=== PATIENT | male | born 1940 | race Caucasian/White ===

== ENCOUNTER 2023-01-06 10:21 | Outpatient (REF) | payer MEDICARE, SELFPAY ==
[2023-01-06 11:46] LABS: MANUAL DIFF FLAG NO
[2023-01-06 11:59] LABS: Basophils Percent Auto 0.2 % (0-2); Eosinophils Absolute Auto 0.1 X10*3/uL (0.0-0.4); Hematocrit 35.2 % (42.0-52.0); Hemoglobin 12.4 g/dl (14.0-18.0); Imm Gran Abs Auto 0.01 X10*3/uL (0.00-0.03); Imm Gran Pct Auto 0.2 % (0.0-0.4); Lymphocytes Percent Auto 21.9 % (20-40); Mean Corpuscular HGB Conc 35.2 g/dl (31.0-36.0); Mean Corpuscular Hemoglobin 34.1 pg (27.0-33.0); Mean Corpuscular Volume 96.7 fL (80.0-98.0); Mean Platelet Volume 9.6 fL (9.4-12.4); Monocytes Absolute Auto 0.4 X10*3/uL (0.1-1.2); Monocytes Percent Auto 8.8 % (2-11); Neutrophils Percent Auto 66.9 % (45-73); Platelet Count 219 X10*3/uL (160-400); Red Blood Count 3.64 X10*6/uL (4.60-5.80); White Blood Count 4.5 X10*3/uL (4.8-10.8)
[2023-01-06 12:08] LABS: Creatinine Urine 126.36 mg/dL
[2023-01-06 12:12] LABS: Microalbum/Creatinine Ratio Ur 56.1 ug/mg cr
[2023-01-06 12:51] LABS: Estimated Average Glucose 97 mg/dL
[2023-01-06 14:44] LABS: Alanine Aminotransferase 19 U/L (0-40); Albumin Level 4.3 g/dL (3.5-5.0); Alkaline Phosphatase 98 U/L (39-117); Anion Gap 13 (12-20); Aspartate Amino Transferase 24 U/L (5-37); Bilirubin Total 0.9 mg/dL (0.0-1.0); Blood Urea Nitrogen 21 mg/dL (9-16); Calcium 9.7 mg/dL (8.4-10.2); Carbon Dioxide 24 mmol/L (22-29); Chloride 108 mmol/L (96-108); Cholesterol 218 mg/dL; Estimated Glomerular Filt Rate 59; Glucose Fasting 110 mg/dL (60-99); HDL Cholesterol 44 mg/dL; Iron 87 mcg/dL (45-160); LDL Cholesterol Calculated 143 mg/dl; Percent Iron Saturation 36 % (15-50); Potassium 4.9 mmol/L (3.3-5.1); Sodium 140 mmol/L (135-145); Total Iron Binding Capacity 242 mcg/dL (228-428); Triglycerides 157 mg/dL; Unsaturated Iron Binding 155 ug/dL
[2023-01-06 15:10] LABS: Folate 11.7 ng/mL (> or = 4.0); Vitamin D 25-OH Total 15.8 ng/mL (>30)
[2023-01-07 06:40] LABS: Vitamin B12 427 pg/mL (200-900)
== END 2023-01-06 10:22 | disposition home or self-care (01) ==
LOC: HO.HMGCLDS 10:21
PROVIDERS: PCP Internal Medicine; Visit Provider Internal Medicine
DX: I10 Essential (primary) hypertension (principal); C61 Malignant neoplasm of prostate; E53.0 Riboflavin deficiency; E55.9 Vitamin D deficiency, unspecified; G62.9 Polyneuropathy, unspecified
CPT/HCPCS: 36415; 80053; 80061; 82043; 82306; 82607; 82746; 83036; 83540; 85025

== ENCOUNTER 2023-03-25 10:40 | Outpatient (REF) | payer MEDICARE, SELFPAY ==
[2023-03-25 13:54] LABS: MANUAL DIFF FLAG NO
[2023-03-25 13:58] LABS: Basophils Percent Auto 0.4 % (0-2); Eosinophils Absolute Auto 0.1 X10*3/uL (0.0-0.4); Eosinophils Percent Auto 1.1 % (0-4); Hematocrit 37.9 % (42.0-52.0); Hemoglobin 13.2 g/dl (14.0-18.0); Imm Gran Abs Auto 0.02 X10*3/uL (0.00-0.03); Imm Gran Pct Auto 0.4 % (0.0-0.4); Lymphocytes Absolute Auto 1.4 X10*3/uL (1.2-4.9); Mean Corpuscular HGB Conc 34.8 g/dl (31.0-36.0); Mean Corpuscular Hemoglobin 33.9 pg (27.0-33.0); Mean Corpuscular Volume 97.4 fL (80.0-98.0); Mean Platelet Volume 9.6 fL (9.4-12.4); Monocytes Absolute Auto 0.5 X10*3/uL (0.1-1.2); Monocytes Percent Auto 8.8 % (2-11); Neutrophils Absolute Auto 3.3 x10*3/uL (2.0-8.3); Neutrophils Percent Auto 62.3 % (45-73); Platelet Count 264 X10*3/uL (160-400); Red Blood Count 3.89 X10*6/uL (4.60-5.80); Red Cell Distribution Width 12.6 % (11.0-16.0); White Blood Count 5.2 X10*3/uL (4.8-10.8)
[2023-03-25 14:24] LABS: Alanine Aminotransferase 18 U/L (0-40); Albumin Level 4.3 g/dL (3.5-5.0); Alkaline Phosphatase 105 U/L (39-117); Anion Gap 11 (12-20); Aspartate Amino Transferase 22 U/L (5-37); Bilirubin Total 0.9 mg/dL (0.0-1.0); Blood Urea Nitrogen 23 mg/dL (9-16); Calcium 9.4 mg/dL (8.4-10.2); Carbon Dioxide 24 mmol/L (22-29); Chloride 108 mmol/L (96-108); Estimated Glomerular Filt Rate 58; Glucose Fasting 111 mg/dL (60-99); Potassium 4.8 mmol/L (3.3-5.1); Sodium 138 mmol/L (135-145); Total Protein 7.3 g/dL (6.5-8.0)
== END 2023-03-25 10:41 | disposition home or self-care (01) ==
LOC: HO.HMGCLDS 10:40
PROVIDERS: PCP Internal Medicine; Visit Provider Internal Medicine
DX: E53.0 Riboflavin deficiency (principal); I10 Essential (primary) hypertension; D64.9 Anemia, unspecified
CPT/HCPCS: 36415; 80053; 85025

== ENCOUNTER 2023-07-08 09:25 | Outpatient (AMB) | payer MEDICARE, SELFPAY ==
[2023-07-08 09:26] VITALS: BP 125/78; PULSE 89; O2SAT 99; BMI 25.4
--- NOTE | 2023-07-08 09:26 | A.OFFPC_ITS ---
Vital Signs 07/08/23 09:26 Height 5 ft 9 in Weight 172 lb BMI 25.4 BP 125/78 Blood Pressure Location Lt brachial Position Sitting Pulse 89 Pulse Source Pulse Oximeter Pulse Oximetry (%) 99 Oxygen Delivery Method Room Air Intake Visit Reasons: ER follow up Intake Note: Pt is here today for ER follow up visit. Allergies No Known Allergies Allergy (Verified 07/08/23 09:28) Medication List - Last Reconciled 07/08/23 by Roma Mari MD amlodipine-benazepril 5-20 mg 1 cap PO DAILY betamethasone dipropionate 0.05% 1 appl topical BID lactobacillus combination no.9 (Adult 50 Plus Probiotic) PO metoprolol succinate ER 100 mg PO DAILY Tobacco use date assessed: 07/08/23 Fall risk assessment: No Falls in past year Last assessed Fall Risk: 07/08/23 Dental Screening Dental Screen Date: 07/08/23 Did you have a dental visit in the last 12 months?: Yes Did you have a dental problem in the last 6 months where you did not have access to dental care?: No Was dental information given to patient?: Patient has dentist HPI ER follow up HPI Details Patient presents for the follow-up of ER visit for chest pain. Cardiac workup was negative andCT of the abdomen and chest was negative for PE, but demonstrated multifocal infrarenal abdominal aortic actasia measuring up to 2.9 cm and unchanged retroperitoneal lymphadenopathy. the recommendation was to recheck CT in 12 months. patient has not had any recurrent chest pain. he has been under lot of stress because his was diagnosed with breast cancer and patient is undergoing treatment for metastatic prostate CA. [facility] Medical History (Updated 03/25/23 @ 10:38 by Roma Mari MD) Prostate cancer Surgical History H/O shoulder surgery Hx of hand surgery Family History Father Hypertension Mother Hypertension Colon cancer Social History Household Members Other:: , Housing: House Patient Tobacco Use Status: Never used Tobacco e-Cigarette/Vaping Use: Never Used Current occupational status: retired Cognitive needs: No Hearing needs: No Vision needs: Yes Questionnaire Thrive Questionnaire Date Thrive assessed: 01/06/23 CHEIKH-7 AMB Questionnaire CHEIKH-7 Date CHEIKH - 7 assessed: 01/06/23 Source: Developed by Drs. Celestine Houston, Eli Reddy, Brad Tenorio and colleagues, with an educational bharath from [employer]. Review of Systems Const All systems reviewed & are unremarkable except as noted in HPI and below Reports no additional complaints Eyes Reports no additional complaints ENT Reports no additional complaints Card Reports no additional complaints Resp Reports no additional complaints GI Reports no additional complaints Physical exam (Primary Care) Vital Signs: Last Vital Signs Pulse 89 07/08/23 09:26 BP 146/86 H 07/08/23 09:26 Pulse Ox 99 07/08/23 09:26 Oxygen Delivery Method Room Air 07/08/23 09:26 BMI result Body Mass Index 25.4 Tobacco/Smoking Status: Tobacco use Status Tobacco use date assessed 07/08/23 07/08/23 09:31 Patient Tobacco Use Status Never used Tobacco 07/08/23 09:28 e-Cigarette/Vaping Use Never Used 07/08/23 09:28 Thrive Assessment: Date of Thrive Assessment Date Thrive assessed 01/06/23 07/08/23 09:28 Const General: no acute distress HENMT Head: Yes normal to inspection Neck Neck: Yes no lymphadenopathy and Yes supple Resp Effort & Inspection: normal respiratory effort Auscultation: clear to auscultation bilaterally Cardio Rhythm: regular rhythm Heart sounds: S1 normal heart sound present and S2 normal heart sound present GI Inspection: Yes normal to inspection Palpation (GI): Soft to palpation Assessment and Plan Assessment & Plan (1) Anemia: Comment: Chronic , normal iron and vitamin B12 level 01/07 Code(s): D64.9 - Anemia, unspecified Plan: H/H were lower in ER than baseline, will recheck Iron/vit B12 (2) Vitamin B2 deficiency: Code(s): E53.0 - Riboflavin deficiency (3) HTN (hypertension): Code(s): I10 - Essential (primary) hypertension Plan: CONTINUE CURRENT MEDICATIONS AND LOW-SODIUM DIET (4) Prostate cancer: Comment: s/p RTx 2018, f/u Dr. Israel 2x a year Code(s): C61 - Malignant neoplasm of prostate Plan: f/u with urology Orders: Orders IRON PROFILE Today D64.9 - Anemia, unspecified, E53.0 - Riboflavin deficiency Vitamin B12 and Folate Today D64.9 - Anemia, unspecified, E53.0 - Riboflavin deficiency Complete Blood Count Auto Diff Today D64.9 - Anemia, unspecified, E53.0 - Riboflavin deficiency Coding Level of Care Code Est Pt Level 4 (94167) Diagnoses Anemia D64.9 Vitamin B2 deficiency E53.0 HTN (hypertension) I10 Prostate cancer C61
== END 2023-07-08 10:07 | disposition home or self-care (01) ==
PROVIDERS: PCP Internal Medicine; Visit Provider Internal Medicine
DX: D64.9 Anemia, unspecified (principal); E53.0 Riboflavin deficiency; I10 Essential (primary) hypertension; C61 Malignant neoplasm of prostate
CPT/HCPCS: 99214

== ENCOUNTER 2023-07-08 10:05 | Outpatient (REF) | payer MEDICARE, SELFPAY ==
[2023-07-08 13:09] LABS: MANUAL DIFF FLAG NO
[2023-07-08 13:22] LABS: Basophils Percent Auto 0.5 % (0-2); Eosinophils Absolute Auto 0.2 X10*3/uL (0.0-0.4); Eosinophils Percent Auto 4.7 % (0-4); Hematocrit 34.5 % (42.0-52.0); Hemoglobin 11.8 g/dl (14.0-18.0); Imm Gran Abs Auto 0.02 X10*3/uL (0.00-0.03); Imm Gran Pct Auto 0.5 % (0.0-0.4); Lymphocytes Absolute Auto 0.9 X10*3/uL (1.2-4.9); Lymphocytes Percent Auto 22.9 % (20-40); Mean Corpuscular HGB Conc 34.2 g/dl (31.0-36.0); Mean Corpuscular Hemoglobin 33.8 pg (27.0-33.0); Mean Corpuscular Volume 98.9 fL (80.0-98.0); Mean Platelet Volume 9.5 fL (9.4-12.4); Monocytes Absolute Auto 0.3 X10*3/uL (0.1-1.2); Neutrophils Absolute Auto 2.6 x10*3/uL (2.0-8.3); Neutrophils Percent Auto 63.4 % (45-73); Platelet Count 257 X10*3/uL (160-400); Red Blood Count 3.49 X10*6/uL (4.60-5.80); Red Cell Distribution Width 12.7 % (11.0-16.0)
[2023-07-08 13:27] LABS: Iron 85 mcg/dL (45-160); Percent Iron Saturation 42 % (15-50); Total Iron Binding Capacity 204 mcg/dL (228-428); Unsaturated Iron Binding 119 ug/dL
[2023-07-08 14:10] LABS: Folate 10.4 ng/mL (> or = 4.0); Vitamin B12 257 pg/mL (200-900)
== END 2023-07-08 10:06 | disposition home or self-care (01) ==
LOC: HO.HMGCLDS 10:05
PROVIDERS: PCP Internal Medicine; Visit Provider Internal Medicine
DX: D64.9 Anemia, unspecified (principal); E53.0 Riboflavin deficiency
CPT/HCPCS: 36415; 82607; 82746; 83540; 85025

== ENCOUNTER 2023-09-22 09:47 | Outpatient (AMB) | payer MEDICARE, SELFPAY ==
--- NOTE | 2023-09-22 09:50 | MHC.PC.OV ---
Vital Signs 09/22/23 09:51 Height 5 ft 9 in Weight 165 lb BMI 24.4 BP 134/70 Blood Pressure Location Lt brachial Position Sitting Pulse 63 Pulse Source Pulse Oximeter Pulse Oximetry (%) 99 Oxygen Delivery Method Room Air Intake Visit Reasons: 6 Month follow up htn Intake Note: Pt is here today for his 6 mo. f/u HTN Allergies No Known Allergies Allergy (Verified 09/22/23 09:51) Medication List - Last Reconciled 09/22/23 by Roma Mari MD amlodipine-benazepril 5-20 mg 1 cap PO DAILY betamethasone dipropionate 0.05% 1 appl topical BID lactobacillus combination no.9 (Adult 50 Plus Probiotic) PO metoprolol succinate ER 100 mg PO DAILY Tobacco use date assessed: 09/22/23 Fall risk assessment: No Falls in past year Last assessed Fall Risk: 09/22/23 Dental Screening Dental Screen Date: 09/22/23 Did you have a dental visit in the last 12 months?: Yes Did you have a dental problem in the last 6 months where you did not have access to dental care?: No Was dental information given to patient?: Patient has dentist HPI 6 Month follow up htn HPI Details Pt presents for f/u of HTN, stable on meds. Pt f/u with urology for prostate ca. PFSH Medical History (Updated 03/25/23 @ 10:38 by Roma Mari MD) Prostate cancer Surgical History H/O shoulder surgery Hx of hand surgery Family History Father Hypertension Mother Hypertension Colon cancer Social History Household Members Other:: , Housing: House Patient Tobacco Use Status: Never used Tobacco e-Cigarette/Vaping Use: Never Used Current occupational status: retired Cognitive needs: No Hearing needs: No Vision needs: Yes Questionnaire Thrive Questionnaire Date Thrive assessed: 01/06/23 CHEIKH-7 AMB Questionnaire CHEIKH-7 Date CHEIKH - 7 assessed: 01/06/23 Source: Developed by Drs. Celestine Houston, Eli Reddy, Brad Tenorio and colleagues, with an educational bharath from [employer]. Review of Systems Const All systems reviewed & are unremarkable except as noted in HPI and below Reports no additional complaints Eyes Reports no additional complaints ENT Reports no additional complaints Card Reports no additional complaints Resp Reports no additional complaints GI Reports no additional complaints Reports no additional complaints Physical exam (Primary Care) Vital Signs: Last Vital Signs Pulse 63 09/22/23 09:51 BP 134/70 09/22/23 09:51 Pulse Ox 99 09/22/23 09:51 Oxygen Delivery Method Room Air 09/22/23 09:51 BMI result Body Mass Index 24.4 Tobacco/Smoking Status: Tobacco use Status Tobacco use date assessed 09/22/23 09/22/23 09:51 Patient Tobacco Use Status Never used Tobacco 09/22/23 09:51 e-Cigarette/Vaping Use Never Used 09/22/23 09:51 Thrive Assessment: Date of Thrive Assessment Date Thrive assessed 01/06/23 09/22/23 09:51 Const General: no acute distress HENMT Head: Yes normal to inspection General nose exam: Normal external nose present Face and sinus: Yes normal facial exam Throat: Yes posterior oropharynx normal Eyes General: appearance normal, both eyes and all related structures Neck Neck: Yes no lymphadenopathy and Yes supple Resp Effort & Inspection: normal respiratory effort Auscultation: clear to auscultation bilaterally Cardio Rhythm: regular rhythm Heart sounds: S1 normal heart sound present and S2 normal heart sound present GI Inspection: Yes normal to inspection Palpation (GI): Soft to palpation Percussion: Yes normal to percussion Auscultation: normal bowel sounds Assessment and Plan Assessment & Plan (1) Anemia: Comment: Chronic , normal iron and vitamin B12 level 01/07 Code(s): D64.9 - Anemia, unspecified Plan: check vit B 12 AND MONITOR CBC (2) Vitamin B2 deficiency: Code(s): E53.0 - Riboflavin deficiency (3) HTN (hypertension): Code(s): I10 - Essential (primary) hypertension Plan: cont meds (4) Prostate cancer: Comment: s/p RTx 2018, f/u Dr. Israel 2x a year Code(s): C61 - Malignant neoplasm of prostate Plan: f/u with urology, Orders: Orders Comprehensive Met. Panel Today C61 - Malignant neoplasm of prostate, D64.9 - Anemia, unspecified, E53.0 - Riboflavin deficiency, I10 - Essential (primary) hypertension Complete Blood Count Auto Diff Today C61 - Malignant neoplasm of prostate, D64.9 - Anemia, unspecified, E53.0 - Riboflavin deficiency, I10 - Essential (primary) hypertension Vitamin B12 and Folate Today C61 - Malignant neoplasm of prostate, D64.9 - Anemia, unspecified, E53.0 - Riboflavin deficiency, I10 - Essential (primary) hypertension Coding Level of Care Code Est Pt Level 4 (57199) Diagnoses Anemia D64.9 Vitamin B2 deficiency E53.0 HTN (hypertension) I10 Prostate cancer C61
[2023-09-22 09:51] VITALS: BP 134/70; PULSE 63; O2SAT 99; BMI 24.4
== END 2023-09-22 10:25 | disposition home or self-care (01) ==
PROVIDERS: PCP Internal Medicine; Visit Provider Internal Medicine
DX: D64.9 Anemia, unspecified (principal); E53.0 Riboflavin deficiency; I10 Essential (primary) hypertension; C61 Malignant neoplasm of prostate
CPT/HCPCS: 99214

== ENCOUNTER 2023-09-22 10:23 | Outpatient (REF) | payer MEDICARE, SELFPAY ==
[2023-09-22 13:08] LABS: MANUAL DIFF FLAG NO
[2023-09-22 13:41] LABS: Basophils Percent Auto 0.5 % (0-2); Eosinophils Absolute Auto 0.1 X10*3/uL (0.0-0.4); Eosinophils Percent Auto 2.1 % (0-4); Hematocrit 34.2 % (42.0-52.0); Hemoglobin 11.8 g/dl (14.0-18.0); Imm Gran Abs Auto 0.01 X10*3/uL (0.00-0.03); Imm Gran Pct Auto 0.2 % (0.0-0.4); Lymphocytes Absolute Auto 1.5 X10*3/uL (1.2-4.9); Lymphocytes Percent Auto 25.5 % (20-40); Mean Corpuscular HGB Conc 34.5 g/dl (31.0-36.0); Mean Corpuscular Volume 95.5 fL (80.0-98.0); Mean Platelet Volume 9.5 fL (9.4-12.4); Monocytes Absolute Auto 0.5 X10*3/uL (0.1-1.2); Monocytes Percent Auto 7.9 % (2-11); Neutrophils Absolute Auto 3.7 x10*3/uL (2.0-8.3); Neutrophils Percent Auto 63.8 % (45-73); Platelet Count 247 X10*3/uL (160-400); Red Blood Count 3.58 X10*6/uL (4.60-5.80); Red Cell Distribution Width 12.7 % (11.0-16.0); White Blood Count 5.8 X10*3/uL (4.8-10.8)
[2023-09-22 14:01] LABS: Alanine Aminotransferase 17 U/L (0-40); Albumin Level 4.1 g/dL (3.5-5.0); Alkaline Phosphatase 128 U/L (39-117); Anion Gap 12 (12-20); Aspartate Amino Transferase 27 U/L (5-37); Bilirubin Total 0.7 mg/dL (0.0-1.0); Blood Urea Nitrogen 21 mg/dL (9-16); Calcium 9.7 mg/dL (8.4-10.2); Carbon Dioxide 24 mmol/L (22-29); Chloride 105 mmol/L (96-108); Estimated Glomerular Filt Rate 60; Glucose Random 115 mg/dL (60-115); Potassium 4.7 mmol/L (3.3-5.1); Sodium 136 mmol/L (135-145); Total Protein 7.6 g/dL (6.5-8.0)
[2023-09-22 14:21] LABS: Folate 13.8 ng/mL (> or = 4.0); Vitamin B12 297 pg/mL (200-900)
== END 2023-09-22 10:24 | disposition home or self-care (01) ==
LOC: HO.HMGCLDS 10:23
PROVIDERS: PCP Internal Medicine; Visit Provider Internal Medicine
DX: D64.9 Anemia, unspecified (principal); E53.0 Riboflavin deficiency; I10 Essential (primary) hypertension; C61 Malignant neoplasm of prostate
CPT/HCPCS: 36415; 80053; 82607; 82746; 85025

== ENCOUNTER 2023-10-06 12:38 | Outpatient (AMB) | payer MEDICARE, SELFPAY ==
[2023-10-06 13:21] VITALS: BP 134/80; PULSE 71; O2SAT 99; BMI 23.9
--- NOTE | 2023-10-06 13:21 | MHC.PC.OV ---
Vital Signs 10/06/23 13:21 Height 5 ft 9 in Weight 162 lb BMI 23.9 BP 134/80 Blood Pressure Location Lt brachial Position Sitting Pulse 71 Pulse Source Pulse Oximeter Pulse Oximetry (%) 99 Oxygen Delivery Method Room Air Intake Visit Reasons: Foot swelling Intake Note: Pt is here today for a sick visit. Pt c/o L foot swelling for 4-5 days. Allergies No Known Allergies Allergy (Verified 10/06/23 13:25) Medication List - Last Reconciled 10/06/23 by Roma Mari MD amlodipine-benazepril 5-20 mg 1 cap PO DAILY betamethasone dipropionate 0.05% 1 appl topical BID lactobacillus combination no.9 (Adult 50 Plus Probiotic) PO meloxicam 15 mg PO DAILY metoprolol succinate ER 100 mg PO DAILY Tobacco use date assessed: 09/22/23 HPI Foot swelling HPI Details Patient presents complaining of swelling redness or warmth on the top of the left foot for 5 days. He denies any injury. Patient had a similar swelling of the right hand few weeks ago. Patient drinks 3 beers a day. Hypertension is controlled on current medications [facility] Medical History (Updated 10/06/23 @ 13:50 by Roma Mari MD) Prostate cancer Surgical History Hx of hand surgery H/O shoulder surgery Family History Father Hypertension Mother Hypertension Colon cancer Social History Household Members Other:: , Housing: House Patient Tobacco Use Status: Never used Tobacco e-Cigarette/Vaping Use: Never Used Current occupational status: retired Cognitive needs: No Hearing needs: No Vision needs: Yes Questionnaire Thrive Questionnaire Date Thrive assessed: 01/06/23 CHEIKH-7 AMB Questionnaire CHEIKH-7 Date CHEIKH - 7 assessed: 01/06/23 Source: Developed by Drs. Celestine Houston, Eli Reddy, Brad Tenorio and colleagues, with an educational bharath from [employer]. Review of Systems Const All systems reviewed & are unremarkable except as noted in HPI and below Reports no additional complaints Eyes Reports no additional complaints ENT Reports no additional complaints Card Reports no additional complaints Resp Reports no additional complaints GI Reports no additional complaints Physical exam (Primary Care) Vital Signs: Last Vital Signs Pulse 71 10/06/23 13:21 BP 134/80 10/06/23 13:21 Pulse Ox 99 10/06/23 13:21 Oxygen Delivery Method Room Air 10/06/23 13:21 BMI result Body Mass Index 23.9 Tobacco/Smoking Status: Tobacco use Status Tobacco use date assessed 09/22/23 10/06/23 13:28 Patient Tobacco Use Status Never used Tobacco 10/06/23 13:28 e-Cigarette/Vaping Use Never Used 10/06/23 13:28 Thrive Assessment: Date of Thrive Assessment Date Thrive assessed 01/06/23 10/06/23 13:28 Const General: no acute distress HENMT Throat: Yes posterior oropharynx normal Resp Effort & Inspection: normal respiratory effort Auscultation: clear to auscultation bilaterally Cardio Rhythm: regular rhythm Heart sounds: S1 normal heart sound present and S2 normal heart sound present Extrem Other: Erythema swelling and warmth on the dorsum of the left foot, left middle toe callus present, no swelling on tender Assessment and Plan Assessment & Plan (1) Foot callus: Code(s): L84 - Corns and callosities Plan: Referred to Podiatry (2) Tendinitis of left foot: Code(s): M77.52 - Other enthesopathy of left foot and ankle Plan: Meloxicam 15 mg daily for 10 days is prescribed, check uric acid level, low purine diet discussed with the patient (3) HTN (hypertension): Code(s): I10 - Essential (primary) hypertension Plan: Continue current medications (4) Anemia: Comment: Chronic , normal iron and vitamin B12 level 01/07 Code(s): D64.9 - Anemia, unspecified Plan: Monitor CBC and iron (5) Vitamin B2 deficiency: Code(s): E53.0 - Riboflavin deficiency Orders: Orders Comprehensive [place]. Panel Fast 6 Months D64.9 - Anemia, unspecified, E53.0 - Riboflavin deficiency, I10 - Essential (primary) hypertension, M77.52 - Other enthesopathy of left foot and ankle Complete Blood Count Auto Diff 6 Months D64.9 - Anemia, unspecified, E53.0 - Riboflavin deficiency, I10 - Essential (primary) hypertension, M77.52 - Other enthesopathy of left foot and ankle IRON PROFILE 6 Months D64.9 - Anemia, unspecified, E53.0 - Riboflavin deficiency, I10 - Essential (primary) hypertension, M77.52 - Other enthesopathy of left foot and ankle Uric Acid 6 Months D64.9 - Anemia, unspecified, E53.0 - Riboflavin deficiency, I10 - Essential (primary) hypertension, M77.52 - Other enthesopathy of left foot and ankle Vitamin B12 and Folate 6 Months D64.9 - Anemia, unspecified, E53.0 - Riboflavin deficiency, I10 - Essential (primary) hypertension, M77.52 - Other enthesopathy of left foot and ankle Referrals Podiatry Referral L84 - Corns and callosities Medications: New meloxicam 15 mg PO DAILY 10 tabs 0RF Coding Level of Care Code Est Pt Level 4 (19052) Diagnoses Foot callus L84 Tendinitis of left foot M77.52 HTN (hypertension) I10 Anemia D64.9 Vitamin B2 deficiency E53.0
== END 2023-10-06 13:52 | disposition home or self-care (01) ==
LOC: HO.HMGC 12:38
PROVIDERS: PCP Internal Medicine; Visit Provider Internal Medicine
DX: L84 Corns and callosities (principal); M77.52 Other enthesopathy of left foot and ankle; I10 Essential (primary) hypertension; D64.9 Anemia, unspecified; E53.0 Riboflavin deficiency
CPT/HCPCS: 99214

== ENCOUNTER 2024-04-13 10:54 | Outpatient (AMB) | payer MEDICARE, SELFPAY ==
[2024-04-13 11:15] VITALS: BP 135/80; PULSE 66; O2SAT 98; BMI 23.2
--- NOTE | 2024-04-13 11:15 | MHC.PC.OV ---
Vital Signs 04/13/24 11:15 Height 5 ft 9 in Weight 157 lb BMI 23.2 BP 135/80 Blood Pressure Location Rt brachial Position Sitting Pulse 66 Pulse Source Pulse Oximeter Pulse Oximetry (%) 98 Oxygen Delivery Method Room Air Intake Visit Reasons: 6 months follow up Intake Note: Pt is here today for 6 months follow up visit. Allergies No Known Allergies Allergy (Verified 04/13/24 11:21) Medication List - Last Reconciled 04/13/24 by Roma Mari MD amlodipine-benazepril 5-20 mg 1 cap PO DAILY betamethasone dipropionate 0.05% 1 appl topical BID enzalutamide (Xtandi) 160 mg PO DAILY lactobacillus combination no.9 (Adult 50 Plus Probiotic) PO meloxicam 15 mg PO DAILY metoprolol succinate ER 100 mg PO DAILY Tobacco use date assessed: 04/13/24 Fall risk assessment: No Falls in past year Last assessed Fall Risk: 04/13/24 Dental Screening Dental Screen Date: 04/13/24 Did you have a dental visit in the last 12 months?: Yes Did you have a dental problem in the last 6 months where you did not have access to dental care?: No Was dental information given to patient?: Patient has dentist HPI 6 months follow up HPI Details Patient presents for the follow-up on hypertension, metastatic prostate CA follows up with Urology and Oncology. [facility] Medical History (Updated 04/13/24 @ 11:50 by Roma Mari MD) Prostate cancer Surgical History Hx of hand surgery H/O shoulder surgery Family History Father Hypertension Mother Hypertension Colon cancer Social History Household Members Other:: , Housing: House Patient Tobacco Use Status: Never used Tobacco e-Cigarette/Vaping Use: Never Used service: No Current occupational status: retired Cognitive needs: No Hearing needs: No Vision needs: Yes Questionnaire PHQ-9 Over the last 2 weeks, how often have you been bothered by any of the following problems? 1. Little interest or pleasure in doing things: several days 2. Feeling down, depressed, or hopeless: not at all 3. Trouble falling or staying asleep, or sleeping too much: several days 4. Feeling tired or having little energy: not at all 5. Poor appetite or overeating: not at all 6. Feeling bad about yourself - or that you are a failure or have let yourself or your family down: not at all 7. Trouble concentrating on things, such as reading the newspaper or watching television: not at all 8. Moving or speaking so slowly that other people could have noticed. Or the opposite - being so fidgety or restless that you have been moving around a lot more than usual: not at all 9. Thoughts that you would be better off or of hurting yourself in some way: not at all Total score: 2 Depression Screening Interpretation: Negative Depression Screening Done: Yes Source: Developed by Drs. Celestine Houston, lEi Reddy, Brad Tenorio and colleagues, with an educational bharath from [employer]. Thrive Questionnaire Date Thrive assessed: 04/13/24 I am a: Patient What is your living situation today?: I have a steady place to live Within the past 12 months, did the food you bought not last and you didn't have the money to get more?: Never true Within the past 12 months, did you worry whether your food would run out before you got money to buy more?: Never true Do you have trouble paying for medicines?: No Do you have trouble getting transportation to medical appointments?: No Do you have trouble paying your heating and electricity bill?: No Do you have trouble taking care of your child, family member or friend?: No Do you have trouble with day-to-day activities such as bathing, preparing meals, shopping, managing finances, etc.?: No Are you currently unemployed and looking for a job?: No Are you interested in more education?: No Please select the resources that you would like help with: None THRIVE Score: 0 AUDIT C Alcohol Use Questionnaire (AUDIT-C) 1. How often do you have a drink containing alcohol?: Never 3. How often do you have six or more drinks on one occasion?: Never Total Score: 0 CHEIKH-7 AMB Questionnaire CHEIKH-7 Date CHEIKH - 7 assessed: 04/13/24 Feeling nervous, anxious, or on edge: 0 = Not at all Not being able to stop or control worryin = Not at all Worrying too much about different things: 0 = Not at all Trouble relaxin = Not at all Being so restless that it is hard to sit still: 0 = Not at all Becoming easily annoyed or irritable: 0 = Not at all Feeling afraid as if something awful might happen: 0 = Not at all Total CHEIKH-7 score (0-4 normal; 5-9 mild; 10-14 moderate; 15-21 severe): 0 Source: Developed by Drs. Celestine Houston, Eli Reddy, Brad Tenorio and colleagues, with an educational bharath from [employer]. Review of Systems Const All systems reviewed & are unremarkable except as noted in HPI and below Eyes Reports no additional complaints ENT Reports no additional complaints Card Reports no additional complaints Resp Reports no additional complaints GI Reports no additional complaints Physical exam (Primary Care) Vital Signs: Last Vital Signs Pulse 66 04/13/24 11:15 Pulse Ox 98 04/13/24 11:15 Oxygen Delivery Method Room Air 04/13/24 11:15 BMI result Body Mass Index 23.2 Tobacco/Smoking Status: Tobacco use Status Tobacco use date assessed 04/13/24 04/13/24 11:25 Patient Tobacco Use Status Never used Tobacco 04/13/24 11:15 e-Cigarette/Vaping Use Never Used 04/13/24 11:15 PHQ-9: PHQ-9 Score PHQ-9: Total score 2 04/13/24 11:25 Depression Screening Interpretation: Negative Thrive Assessment: Date of Thrive Assessment Date Thrive assessed 04/13/24 04/13/24 11:25 Const General: no acute distress HENMT Head: Yes normal to inspection Throat: Yes posterior oropharynx normal Eyes General: appearance normal, both eyes and all related structures Neck Neck: Yes supple Resp Effort & Inspection: normal respiratory effort Auscultation: clear to auscultation bilaterally Cardio Rhythm: regular rhythm Heart sounds: S1 normal heart sound present and S2 normal heart sound present GI Inspection: Yes normal to inspection Palpation (GI): Soft to palpation Percussion: Yes normal to percussion Assessment and Plan Assessment & Plan (1) Anemia: Comment: Chronic , normal iron and vitamin B12 level 01/07 Code(s): D64.9 - Anemia, unspecified Plan: monitor CBC (2) Prostate cancer: Comment: s/p RTx 2019, f/u Dr. Israel 2x a year, on Xtandi Code(s): C61 - Malignant neoplasm of prostate Plan: Follow-up with urology (3) HTN (hypertension): Code(s): I10 - Essential (primary) hypertension Plan: Continue current medications, return in 6 months with a fasting labs before Orders: Orders Comprehensive [place]. Panel Fast 6 Months D64.9 - Anemia, unspecified, I10 - Essential (primary) hypertension Complete Blood Count Auto Diff 6 Months D64.9 - Anemia, unspecified, I10 - Essential (primary) hypertension Comprehensive Met. Panel Today C61 - Malignant neoplasm of prostate, D64.9 - Anemia, unspecified, I10 - Essential (primary) hypertension Complete Blood Count Auto Diff Today C61 - Malignant neoplasm of prostate, D64.9 - Anemia, unspecified, I10 - Essential (primary) hypertension IRON PROFILE Today C61 - Malignant neoplasm of prostate, D64.9 - Anemia, unspecified, I10 - Essential (primary) hypertension Coding Level of Care Code Est Pt Level 4 (38029) Diagnoses Anemia D64.9 Prostate cancer C61 HTN (hypertension) I10
== END 2024-04-13 11:48 | disposition home or self-care (01) ==
LOC: HO.HMGC 10:54
PROVIDERS: PCP Internal Medicine; Visit Provider Internal Medicine
DX: D64.9 Anemia, unspecified (principal); C61 Malignant neoplasm of prostate; I10 Essential (primary) hypertension
CPT/HCPCS: 99214

== ENCOUNTER 2024-04-13 11:49 | Outpatient (REF) | payer MEDICARE, SELFPAY ==
[2024-04-13 14:13] LABS: MANUAL DIFF FLAG NO
[2024-04-13 14:19] LABS: Basophils Percent Auto 0.6 % (0-2); Eosinophils Absolute Auto 0.1 X10*3/uL (0.0-0.4); Eosinophils Percent Auto 3.4 % (0-4); Hematocrit 33.7 % (42.0-52.0); Hemoglobin 11.6 g/dl (14.0-18.0); Imm Gran Abs Auto 0.01 X10*3/uL (0.00-0.03); Imm Gran Pct Auto 0.3 % (0.0-0.4); Lymphocytes Absolute Auto 1.1 X10*3/uL (1.2-4.9); Lymphocytes Percent Auto 30.1 % (20-40); Mean Corpuscular HGB Conc 34.4 g/dl (31.0-36.0); Mean Corpuscular Hemoglobin 31.9 pg (27.0-33.0); Mean Corpuscular Volume 92.6 fL (80.0-98.0); Mean Platelet Volume 9.4 fL (9.4-12.4); Monocytes Absolute Auto 0.3 X10*3/uL (0.1-1.2); Monocytes Percent Auto 8.4 % (2-11); Neutrophils Percent Auto 57.2 % (45-73); Platelet Count 249 X10*3/uL (160-400); Red Blood Count 3.64 X10*6/uL (4.60-5.80); Red Cell Distribution Width 13.6 % (11.0-16.0); White Blood Count 3.6 X10*3/uL (4.8-10.8)
[2024-04-13 14:32] LABS: Alanine Aminotransferase 16 U/L (0-40); Albumin Level 3.9 g/dL (3.5-5.0); Alkaline Phosphatase 187 U/L (39-117); Anion Gap 11 (12-20); Aspartate Amino Transferase 26 U/L (5-37); Bilirubin Total 0.8 mg/dL (0.0-1.0); Blood Urea Nitrogen 18 mg/dL (9-16); Calcium 9.5 mg/dL (8.4-10.2); Carbon Dioxide 23 mmol/L (22-29); Chloride 109 mmol/L (96-108); Estimated Glomerular Filt Rate > 60; Glucose Random 106 mg/dL (60-115); Potassium 4.3 mmol/L (3.3-5.1); Sodium 139 mmol/L (135-145)
== END 2024-04-13 11:50 | disposition home or self-care (01) ==
LOC: HO.HMGCLDS 11:49
PROVIDERS: PCP Internal Medicine; Visit Provider Internal Medicine
DX: D64.9 Anemia, unspecified (principal); C61 Malignant neoplasm of prostate; I10 Essential (primary) hypertension
CPT/HCPCS: 36415; 80053; 85025

== ENCOUNTER 2024-05-04 08:47 | Outpatient (REF) | payer MEDICARE, SELFPAY ==
[2024-05-04 10:38] LABS: Anion Gap 15 (12-20); Blood Urea Nitrogen 17 mg/dL (9-16); Calcium 9.4 mg/dL (8.4-10.2); Carbon Dioxide 23 mmol/L (22-29); Chloride 107 mmol/L (96-108); Estimated Glomerular Filt Rate > 60; Glucose Random 107 mg/dL (60-115); Iron 82 mcg/dL (45-160); Percent Iron Saturation 40 % (15-50); Potassium 4.5 mmol/L (3.3-5.1); Sodium 140 mmol/L (135-145); Total Iron Binding Capacity 206 mcg/dL (228-428); Unsaturated Iron Binding 124 ug/dL
== END 2024-05-04 08:48 | disposition home or self-care (01) ==
LOC: HO.HMGCLDS 08:47
PROVIDERS: PCP Internal Medicine; Visit Provider Internal Medicine
DX: D64.9 Anemia, unspecified (principal); I10 Essential (primary) hypertension; C61 Malignant neoplasm of prostate
CPT/HCPCS: 36415; 80048; 83540

== ENCOUNTER 2024-06-30 12:37 | Outpatient (AMB) | payer MEDICARE, SELFPAY ==
--- NOTE | 2024-06-30 12:38 | AM.OFFWIN_ITS ---
Intake Vital Signs 06/30/24 12:57 Weight 155 lb BP 160/100 H Blood Pressure Location Lt brachial Position Sitting Pulse 75 Pulse Source Pulse Oximeter Temp 98.4 F Temp Source Oral Pulse Oximetry (%) 97 Oxygen Delivery Method Room Air Intake Visit Reasons: EP-light headed, high pulse Intake Note: Patient for lightheadedness, unsteady, shaky and SOb that has been present for a few days. states he recently is being treated for prostate cancer. Patient Tobacco Use Status: Never used Tobacco Allergies No Known Allergies Allergy (Verified 04/13/24 11:21) Do you need a note to return to daycare/school/sports/work: No HPI HPI Comments History of Present Illness Details Patient is an 83-year-old male with a past medical history of hypertension and prostate cancer who is here with his , Dagoberto, complaining of 2 days of dizziness, lightheadedness, blurry vision, feeling off balance and nauseous when he walks. He denies any sweating, shortness of breath or chest pain. She states he has been having trouble with his blood pressures and they have been speaking to his primary care doctor, Dr Mari, and her nurse and making medication adjustments because it was running low. They eventually took him off all of his medications with a criteria of taking 50 mg of metoprolol if it was over 140/90. His states that it has been under that threshold so he has not taken any medications in the last few days. He was taking amlodipine- benzepril 10-40, that was weaned to amlodipine/benazepril 520 mg and eventually weaned off of it completely. She states that he has never been in AFib before and is not on a blood thinner. She also states that he is on chemotherapy with Dr. KATHIE TRAORE at they stay and had his last treatment on July 17 and then had a liver biopsy on June 26. [facility] Medical History (Updated 06/30/24 @ 13:14 by Chanell Ng PA-C) Prostate cancer Surgical History Hx of hand surgery H/O shoulder surgery Family History Father Hypertension Mother Hypertension Colon cancer Social History Household Members Other:: , Housing: House Patient Tobacco Use Status: Never used Tobacco e-Cigarette/Vaping Use: Never Used service: No Current occupational status: retired Cognitive needs: No Hearing needs: No Vision needs: Yes Review of Systems Const All systems reviewed & are unremarkable except as noted in HPI and below Physical Exam Const General: cooperative, healthy appearing, comfortable, well developed, anxious and tired appearing Orientation/consciousness: patient oriented x3 Limitations: wheelchair HEENT Head: Yes normal to inspection Ears: hearing grossly normal bilaterally General nose exam: Normal external nose present Face and sinus: Yes normal facial exam Eyes General: appearance normal, both eyes and all related structures Neck Neck: Yes normal visual inspection and Yes full ROM Resp Effort & Inspection: normal respiratory effort and able to speak in complete sen tences Auscultation: clear to auscultation bilaterally Cardio Rate: tachycardic Rhythm: abnormal rhythm irregularly irregular Heart sounds: normal S1 and S2 GI Inspection: Yes normal to inspection Skin General skin exam: no rashes or lesions noted Neuro General: patient oriented x3 Extrem General: Yes normal to inspection Office Procedures EKG Details: AFib with RVR at 137 beats per minute, ? Septal infarct 44804-[id number], Complete Results AMB Random Glucose (hemocue) AMB Random Glucose (hemocue) 117 mg/dL Last Edit by CHANTAL Wood on 06/30/24 13:01 Assessment & Plan Assessment & Plan (1) Atrial fibrillation with RVR: Code(s): I48.91 - Unspecified atrial fibrillation Plan: EKG showed AFib with a RVR, as this is new, [place] [facility] [place] [facility]. Also showed questionable septal infarct however this was not evident on the EKG and it was not on his old one, likely lead placement but I did give him 325 mg chewable aspirin before departure. Plan see above Orders: Orders AMB Random Glucose (hemocue) Today Z13.9 - Encounter for screening, unspecified AMB Aspirin Adult Dose Today I48.91 - Unspecified atrial fibrillation Medications: New aspirin 325 mg PO ONCE 1 tab 0RF I48.91 - Unspecified atrial fibrillation Coding Level of Care Code Est Pt Level 5 (73228) Diagnoses Atrial fibrillation with RVR I48. CPT Codes EKG - CPT: 01785-Digwqztssidzalhyf, Complete ([id number])
[2024-06-30 12:57] VITALS: BP 160/100; PULSE 75; TEMP 36.9; O2SAT 97
== END 2024-06-30 13:39 | disposition home or self-care (01) ==
PROVIDERS: PCP Internal Medicine; Visit Provider Physician Assistant
DX: I48.91 Unspecified atrial fibrillation (principal); R42 Dizziness and giddiness
CPT/HCPCS: 82948; 93000; 99214

== ENCOUNTER 2024-07-19 12:09 | Outpatient (AMB) | payer MEDICARE, SELFPAY ==
--- NOTE | 2024-07-19 12:17 | MHC.PC.OV ---
Vital Signs 07/19/24 12:19 BMI Reason not done Patient refused/unable BP 94/60 Blood Pressure Location Rt brachial Position Sitting Pulse 89 Pulse Source Pulse Oximeter Pulse Oximetry (%) 98 Oxygen Delivery Method Room Air Intake Visit Reasons: Hospital follow up Intake Note: Pt is here today for his HDF Allergies No Known Allergies Allergy (Verified 07/19/24 12:18) Medication List - Last Reconciled 07/19/24 by Roma Mari MD dexamethasone 16 mg PO DAILY docetaxel IV metoprolol succinate ER 100 mg PO DAILY fn-fsh-EF-vit U-uoxlfk-vlasnhc 200 mcg-15 mcg- 5 mg-1 mg (PreserVision AREDS 2 Plus Multivit) caps PO Tobacco use date assessed: 07/19/24 Fall risk assessment: No Falls in past year Last assessed Fall Risk: 07/19/24 Dental Screening Dental Screen Date: 07/19/24 Did you have a dental visit in the last 12 months?: Yes Did you have a dental problem in the last 6 months where you did not have access to dental care?: No Was dental information given to patient?: Patient has dentist HPI Hospital follow up HPI Details Patient presents for the follow-up of hospitalization at [facility] for episode of hypotension and new onset AFib, triggered by chemotherapy for metastatic prostate CA. Patient received IV hydration and has been taking metoprolol with a good heart rate control. Anticoagulation is contraindicated because comorbidities including active chemo treatment and anemia. Patient denies palpitations chest pain but has been becoming weaker, not able to walk and using wheelchair most of the time. [facility] Medical History (Updated 07/19/24 @ 13:12 by Roma Mari MD) Prostate cancer Surgical History Hx of hand surgery H/O shoulder surgery Family History Father Hypertension Mother Hypertension Colon cancer Social History Household Members Other:: , Housing: House Patient Tobacco Use Status: Never used Tobacco e-Cigarette/Vaping Use: Never Used service: No Current occupational status: retired Cognitive needs: No Hearing needs: No Vision needs: Yes Questionnaire PHQ-9 Over the last 2 weeks, how often have you been bothered by any of the following problems? 1. Little interest or pleasure in doing things: several days 2. Feeling down, depressed, or hopeless: several days 3. Trouble falling or staying asleep, or sleeping too much: several days 4. Feeling tired or having little energy: several days 5. Poor appetite or overeating: several days 6. Feeling bad about yourself - or that you are a failure or have let yourself or your family down: several days 7. Trouble concentrating on things, such as reading the newspaper or watching television: several days 8. Moving or speaking so slowly that other people could have noticed. Or the opposite - being so fidgety or restless that you have been moving around a lot more than usual: several days 9. Thoughts that you would be better off or of hurting yourself in some way: not at all Total score: 8 Depression Screening Interpretation: Negative Depression Screening Done: Yes 54034 - PHQ-9 Billing: Yes Source: Developed by Drs. Celestine Houston, Eli Reddy, Brad Tenorio and colleagues, with an educational bharath from [employer]. Thrive Questionnaire Date Thrive assessed: 07/19/24 I am a: Patient What is your living situation today?: I have a steady place to live Within the past 12 months, did the food you bought not last and you didn't have the money to get more?: Never true Within the past 12 months, did you worry whether your food would run out before you got money to buy more?: Never true Do you have trouble paying for medicines?: No Do you have trouble getting transportation to medical appointments?: No Do you have trouble paying your heating and electricity bill?: No Do you have trouble taking care of your child, family member or friend?: Yes Do you have trouble with day-to-day activities such as bathing, preparing meals, shopping, managing finances, etc.?: Yes Are you interested in more education?: No Please select the resources that you would like help with: None Currently or been in a relationship where the following occur: No concerns reported THRIVE Score: 0 AUDIT C Alcohol Use Questionnaire (AUDIT-C) 1. How often do you have a drink containing alcohol?: Never Total Score: 0 CHEIKH-7 AMB Questionnaire CHEIKH-7 Date CHEIKH - 7 assessed: 07/19/24 Feeling nervous, anxious, or on edge: 1 = Several days Not being able to stop or control worryin = Several days Worrying too much about different things: 1 = Several days Trouble relaxin = Not at all Being so restless that it is hard to sit still: 0 = Not at all Becoming easily annoyed or irritable: 0 = Not at all Feeling afraid as if something awful might happen: 0 = Not at all Total CHEIKH-7 score (0-4 normal; 5-9 mild; 10-14 moderate; 15-21 severe): 3 Source: Developed by Drs. Celestine Houston, Eli Reddy, Brad Tenorio and colleagues, with an educational bharath from [employer]. Review of Systems Const All systems reviewed & are unremarkable except as noted in HPI and below Card Reports no additional complaints Resp Reports no additional complaints GI Reports no additional complaints Reports no additional complaints Physical exam (Primary Care) Vital Signs: Last Vital Signs Pulse 89 07/19/24 12:19 BP 94/60 07/19/24 12:19 Pulse Ox 98 07/19/24 12:19 Oxygen Delivery Method Room Air 07/19/24 12:19 Tobacco/Smoking Status: Tobacco use Status Tobacco use date assessed 07/19/24 07/19/24 12:19 Patient Tobacco Use Status Never used Tobacco 07/19/24 12:19 e-Cigarette/Vaping Use Never Used 07/19/24 12:19 PHQ-9: PHQ-9 Score PHQ-9: Total score 8 07/19/24 12:19 Depression Screening Interpretation: Negative Thrive Assessment: Date of Thrive Assessment Date Thrive assessed 07/19/24 07/19/24 12:26 Currently or been in a relationship where the following occur: No concerns reported Const General: no acute distress HENMT Mouth: Normal oral and palatal mucosa present Neck Neck: Yes supple Resp Effort & Inspection: normal respiratory effort Auscultation: clear to auscultation bilaterally Cardio Rate: tachycardic Rhythm: regular rhythm Heart sounds: S1 normal heart sound present and S2 normal heart sound present GI Palpation (GI): Soft to palpation Percussion: Yes normal to percussion Coding Level of Care Code Est Pt Level 4 (49352) Diagnoses Atrial fibrillation with RVR I48.91 Prostate cancer C61 Anxiety F41.9 Assessment & Plan Assessment & Plan (1) Atrial fibrillation with RVR: Comment: Rate controlled on metoprolol, not candidate for anticoagulation due to comorbidities Code(s): I48.91 - Unspecified atrial fibrillation Category: Medical Plan: Continue metoprolol (2) Prostate cancer: Comment: s/p RTx 2018, f/u Dr. Israel 2x a year, on Xtandi Code(s): C61 - Malignant neoplasm of prostate Category: Medical Plan: Continue current treatment follow-up with oncology and urology (3) Anxiety: Code(s): F41.9 - Anxiety disorder, unspecified Category: Medical Plan: Start sertraline 25 mg daily for the 1st week then increase to 50 mg daily follow-up in 2 months or as needed Medications: New sertraline 1/2 tabl qd for 1 week, then 1 tabl qd 50 mg PO DAILY 90 tabs 1RF
[2024-07-19 12:19] VITALS: BP 94/60; PULSE 89; O2SAT 98
== END 2024-07-19 13:12 | disposition home or self-care (01) ==
PROVIDERS: PCP Internal Medicine; Visit Provider Internal Medicine
DX: I48.91 Unspecified atrial fibrillation (principal); C61 Malignant neoplasm of prostate; F41.9 Anxiety disorder, unspecified

== ENCOUNTER → 2024-07-19 12:09 | Outpatient (BNVA) | payer MEDICARE, SELFPAY | PROVIDERS: PCP Internal Medicine; Visit Provider Internal Medicine | DX: I48.91 Unspecified atrial fibrillation (principal); C61 Malignant neoplasm of prostate; F41.9 Anxiety disorder, unspecified | CPT/HCPCS: 96127; 99212 ==

== ENCOUNTER 2024-08-14 13:00 | Outpatient (REF) | payer MEDICARE, SELFPAY ==
[2024-08-14 17:26] LABS: CDiff Gene PCR NEGATIVE (Negative)
[2024-08-14 21:10] LABS: Leukocytes Stool Qualitative NEGATIVE (NEGATIVE)
== END 2024-08-14 13:01 | disposition home or self-care (01) ==
LOC: HO.HMGCLNP 13:00
PROVIDERS: PCP Internal Medicine; Visit Provider Internal Medicine
DX: R19.7 Diarrhea, unspecified (principal)
CPT/HCPCS: 87493; 89055

== ENCOUNTER 2024-08-21 09:09 | Outpatient (AMB) | payer MEDICARE, SELFPAY ==
--- NOTE | 2024-08-21 09:45 | A.OFFPC_ITS ---
Vital Signs 08/21/24 09:46 Height 5 ft 9 in Weight 150 lb BMI 22.1 BP 102/64 Blood Pressure Location Lt brachial Position Sitting Pulse 94 Pulse Source Pulse Oximeter Pulse Oximetry (%) 99 Oxygen Delivery Method Room Air Intake Visit Reasons: [facility] Intake Note: Pt is here today for Hospital follow up visit. Allergies No Known Allergies Allergy (Verified 07/19/24 12:18) Medication List - Last Reconciled 08/21/24 by Roma Mari MD fludrocortisone 0.1 mg PO DAILY metoprolol succinate ER 50 mg PO DAILY zf-txl-MA-vit F-nfkwpm-xxbgvil 200 mcg-15 mcg- 5 mg-1 mg (PreserVision AREDS 2 Plus Multivit) caps PO sertraline 50 mg PO DAILY walker Front wheeled walker Tobacco use date assessed: 08/21/24 Dental Screening Dental Screen Date: 07/19/24 HPI [facility] HPI Details Patient presents for the follow-up hospitalization at [facility] for general fatigue orthostatic hypotension. Patient is feeling slightly better and denies lightheadedness when standing up and systolic blood pressure readings have been in low 120s at home. he is about to start physical therapy at home. He developed right footdrop from chemotherapy. He follows up with oncology and urology for a new treatment for metastatic prostate CA. [facility] Medical History Prostate cancer Surgical History Hx of hand surgery H/O shoulder surgery Family History Father Hypertension Mother Hypertension Colon cancer Social History Household Members Other:: , Housing: House Patient Tobacco Use Status: Never used Tobacco e-Cigarette/Vaping Use: Never Used service: No Current occupational status: retired Cognitive needs: No Hearing needs: No Vision needs: Yes Questionnaire Thrive Questionnaire Date Thrive assessed: 07/19/24 I am a: Patient What is your living situation today?: I have a steady place to live Within the past 12 months, did the food you bought not last and you didn't have the money to get more?: Never true Within the past 12 months, did you worry whether your food would run out before you got money to buy more?: Never true Do you have trouble paying for medicines?: No Do you have trouble getting transportation to medical appointments?: No Do you have trouble paying your heating and electricity bill?: No Do you have trouble taking care of your child, family member or friend?: Yes Do you have trouble with day-to-day activities such as bathing, preparing meals, shopping, managing finances, etc.?: Yes Are you interested in more education?: No Please select the resources that you would like help with: None Currently or been in a relationship where the following occur: No concerns reported THRIVE Score: 0 CHEIKH-7 AMB Questionnaire CHEIKH-7 Date CHEIKH - 7 assessed: 07/19/24 Source: Developed by Drs. Celestine Houston, Eli Reddy, Brad Tenorio and colleagues, with an educational bharath from [employer]. Review of Systems Const All systems reviewed & are unremarkable except as noted in HPI and below Card Reports no additional complaints Resp Reports no additional complaints GI Reports no additional complaints Reports no additional complaints Physical exam (Primary Care) Vital Signs: Last Vital Signs Pulse 94 08/21/24 09:46 BP 102/64 08/21/24 09:46 Pulse Ox 99 08/21/24 09:46 Oxygen Delivery Method Room Air 08/21/24 09:46 BMI result Body Mass Index 22.1 Tobacco/Smoking Status: Tobacco use Status Tobacco use date assessed 08/21/24 08/21/24 09:52 Patient Tobacco Use Status Never used Tobacco 08/21/24 09:52 e-Cigarette/Vaping Use Never Used 08/21/24 09:52 Thrive Assessment: Date of Thrive Assessment Date Thrive assessed 07/19/24 08/21/24 09:52 Currently or been in a relationship where the following occur: No concerns reported Const General: no acute distress Eyes General: appearance normal, both eyes and all related structures Resp Effort & Inspection: normal respiratory effort Auscultation: clear to auscultation bilaterally Cardio Rhythm: regular rhythm Heart sounds: S1 normal heart sound present and S2 normal heart sound present GI Inspection: Yes normal to inspection Palpation (GI): Soft to palpation Coding Level of Care Code Est Pt Level 4 (70635) Diagnoses Atrial fibrillation with RVR I48.91 Orthostatic hypotension I95.1 Prostate cancer C61 Anxiety F41.9 Assessment & Plan Assessment & Plan (1) Atrial fibrillation with RVR: Comment: Rate controlled on metoprolol, not candidate for anticoagulation due to comorbidities Code(s): I48.91 - Unspecified atrial fibrillation Category: Medical Plan: Continue metoprolol (2) Orthostatic hypotension: Code(s): I95.1 - Orthostatic hypotension Category: Medical Plan: Continue Florinef (3) Prostate cancer: Comment: s/p RTx 2018, f/u Dr. Israel 2x a year, on Xtandi Code(s): C61 - Malignant neoplasm of prostate Category: Medical Plan: Follow-up with oncology and urology (4) Anxiety: Code(s): F41.9 - Anxiety disorder, unspecified Category: Medical Plan: Restart sertraline, follow-up in 1 month Medications: Discontinued fludrocortisone Discontinued Reason: Doctor's Order 0.1 mg PO DAILY 30 tabs 0RF
[2024-08-21 09:46] VITALS: BP 102/64; PULSE 94; O2SAT 99; BMI 22.1
== END 2024-08-21 10:24 | disposition home or self-care (01) ==
LOC: HO.HMCC 09:10
PROVIDERS: PCP Internal Medicine; Visit Provider Internal Medicine
DX: I48.91 Unspecified atrial fibrillation (principal); I95.1 Orthostatic hypotension; C61 Malignant neoplasm of prostate; F41.9 Anxiety disorder, unspecified

== ENCOUNTER → 2024-08-21 09:09 | Outpatient (BNVA) | payer MEDICARE, SELFPAY | PROVIDERS: PCP Internal Medicine; Visit Provider Internal Medicine | DX: I48.91 Unspecified atrial fibrillation (principal); I95.1 Orthostatic hypotension; C61 Malignant neoplasm of prostate; F41.9 Anxiety disorder, unspecified | CPT/HCPCS: 99212 ==

== ENCOUNTER 2024-09-20 13:13 | Outpatient (AMB) | payer MEDICARE, SELFPAY ==
[2024-09-20 13:14] VITALS: BP 124/68; PULSE 100; O2SAT 99; BMI 22.3
--- NOTE | 2024-09-20 13:14 | MHC.PC.OV ---
Vital Signs 09/20/24 13:14 Height 5 ft 9 in Weight 151 lb BMI 22.3 BP 124/68 Blood Pressure Location Rt brachial Position Sitting Pulse 100 Pulse Source Pulse Oximeter Pulse Oximetry (%) 99 Oxygen Delivery Method Room Air Intake Visit Reasons: 1 month follow up Intake Note: Pt is here today for his 1mo. f/u Allergies No Known Allergies Allergy (Verified 09/20/24 13:16) Medication List - Last Reconciled 09/20/24 by Roma Mari MD fludrocortisone 0.1 mg PO DAILY lactobacillus combination no.9 (Adult 50 Plus Probiotic) 4,000 mmu cells PO DAILY metoprolol succinate ER 50 mg PO DAILY cc-lfq-YX-vit S-rfmwcv-fywluzn 200 mcg-15 mcg- 5 mg-1 mg (PreserVision AREDS 2 Plus Multivit) caps PO prednisone mg PO sertraline 50 mg PO DAILY walker Front wheeled walker Tobacco use date assessed: 08/21/24 Fall risk assessment: No Falls in past year Last assessed Fall Risk: 09/20/24 Dental Screening Dental Screen Date: 09/20/24 Did you have a dental visit in the last 12 months?: Yes Did you have a dental problem in the last 6 months where you did not have access to dental care?: No Was dental information given to patient?: Patient has dentist HPI 1 month follow up HPI Details Patient presents for the follow-up of orthostatic hypotension in paroxysmal AFib/atrial tachycardia stable on current medications. He could not tolerate sertraline for chronic anxiety, became angry. Patient is established with Urology and Oncology for metastatic prostate CA [facility] Medical History (Updated 09/20/24 @ 14:23 by Roma aMri MD) Prostate cancer Surgical History Hx of hand surgery H/O shoulder surgery Family History Father Hypertension Mother Hypertension Colon cancer Social History Household Members Other:: , Housing: House Patient Tobacco Use Status: Never used Tobacco e-Cigarette/Vaping Use: Never Used service: No Current occupational status: retired Cognitive needs: No Hearing needs: No Vision needs: Yes Questionnaire Thrive Questionnaire Date Thrive assessed: 07/19/24 CHEIKH-7 AMB Questionnaire CHEIKH-7 Date CHEIKH - 7 assessed: 07/19/24 Source: Developed by Drs. Celestine Houston, Eli Reddy, Brad Tenorio and colleagues, with an educational bharath from [employer]. Review of Systems Const All systems reviewed & are unremarkable except as noted in HPI and below Eyes Reports no additional complaints ENT Reports no additional complaints Card Reports no additional complaints Resp Reports no additional complaints GI Reports no additional complaints Reports no additional complaints Physical exam (Primary Care) Vital Signs: Last Vital Signs Pulse 100 09/20/24 13:14 BP 124/68 09/20/24 13:14 Pulse Ox 99 09/20/24 13:14 Oxygen Delivery Method Room Air 09/20/24 13:14 BMI result Body Mass Index 22.3 Tobacco/Smoking Status: Tobacco use Status Tobacco use date assessed 08/21/24 09/20/24 13:20 Patient Tobacco Use Status Never used Tobacco 09/20/24 13:20 e-Cigarette/Vaping Use Never Used 09/20/24 13:20 Thrive Assessment: Date of Thrive Assessment Date Thrive assessed 07/19/24 09/20/24 13:20 Const General: no acute distress HENMT Head: Yes normal to inspection Face and sinus: Yes normal facial exam Eyes General: appearance normal, both eyes and all related structures Neck Neck: Yes supple Resp Effort & Inspection: normal respiratory effort Auscultation: clear to auscultation bilaterally Cardio Rhythm: regular rhythm Heart sounds: S1 normal heart sound present and S2 normal heart sound present GI Inspection: Yes normal to inspection Palpation (GI): Soft to palpation Coding Level of Care Code Est Pt Level 4 (41838) Complex EM visit Add On G2211 Diagnoses Orthostatic hypotension I95.1 Atrial fibrillation with RVR I48.91 Prostate cancer C61 Assessment & Plan Assessment & Plan (1) Orthostatic hypotension: Code(s): I95.1 - Orthostatic hypotension Category: Medical Plan: Continue fludrocortisone (2) Atrial fibrillation with RVR: Comment: Rate controlled on metoprolol, not candidate for anticoagulation due to comorbidities Code(s): I48.91 - Unspecified atrial fibrillation Category: Medical Plan: Continue metoprolol (3) Prostate cancer: Comment: s/p RTx 2018, f/u Dr. Israel 2x a year, on Xtandi Code(s): C61 - Malignant neoplasm of prostate Category: Medical Plan: Follow-up with urology and oncology Medications: Discontinued sertraline 1/2 tabl qd for 1 week, then 1 tabl qd Discontinued Reason: Doctor's Order 50 mg PO DAILY 90 tabs 1RF
== END 2024-09-20 13:52 | disposition home or self-care (01) ==
LOC: HO.HMCC 13:13
PROVIDERS: PCP Internal Medicine; Visit Provider Internal Medicine
DX: I95.1 Orthostatic hypotension (principal); I48.91 Unspecified atrial fibrillation; C61 Malignant neoplasm of prostate

== ENCOUNTER → 2024-09-20 13:13 | Outpatient (BNVA) | payer MEDICARE, SELFPAY | PROVIDERS: PCP Internal Medicine; Visit Provider Internal Medicine | DX: I95.1 Orthostatic hypotension (principal); I48.91 Unspecified atrial fibrillation; C61 Malignant neoplasm of prostate | CPT/HCPCS: 99212 ==

== ENCOUNTER 2024-12-18 10:29 | Outpatient (AMB) | payer MEDICARE, SELFPAY ==
[2024-12-18 10:43] VITALS: BP 96/62; PULSE 105; RESP 20; TEMP 36.4; O2SAT 100
--- NOTE | 2024-12-18 10:43 | A.OFFPC_ITS ---
Vital Signs 12/18/24 10:43 Height 5 ft 9 in BMI Reason not done Patient refused/unable BP 96/62 Blood Pressure Location Lt brachial Position Sitting Respiration 20 Pulse 105 H Pulse Source Pulse Oximeter Temp 97.5 F Temp Source Oral Pulse Oximetry (%) 100 Oxygen Delivery Method Room Air Intake Visit Reasons: 3 month follow up Intake Note: Pt is here today for 3 months follow up visit. Pt states that his legs are very swollen. Allergies No Known Allergies Allergy (Verified 12/18/24 10:57) Tobacco use date assessed: 12/18/24 Fall risk assessment: No Falls in past year Last assessed Fall Risk: 12/18/24 Dental Screening Dental Screen Date: 12/18/24 Did you have a dental visit in the last 12 months?: Yes Did you have a dental problem in the last 6 months where you did not have access to dental care?: No Was dental information given to patient?: Patient has dentist HPI 3 month follow up HPI Details Pt presents for f/u follow-up of paroxysmal AFib controlled on metoprolol and orthostatic hypotension improved on fludrocortisone. Patient is undergoing treatment for metastatic prostate CA and complains of weakness, decreased appetite, weight loss and side effects from chemotherapy. FOR[facility]LY [facility] Medical History Prostate cancer Surgical History Hx of hand surgery H/O shoulder surgery Family History Father Hypertension Mother Hypertension Colon cancer Social History Household Members Other:: , Housing: House Patient Tobacco Use Status: Never used Tobacco e-Cigarette/Vaping Use: Never Used service: No Current occupational status: retired Cognitive needs: No Hearing needs: No Vision needs: Yes Questionnaire PHQ-9 Over the last 2 weeks, how often have you been bothered by any of the following problems? 1. Little interest or pleasure in doing things: not at all 2. Feeling down, depressed, or hopeless: not at all 3. Trouble falling or staying asleep, or sleeping too much: not at all 4. Feeling tired or having little energy: not at all 5. Poor appetite or overeating: not at all 6. Feeling bad about yourself - or that you are a failure or have let yourself or your family down: not at all 7. Trouble concentrating on things, such as reading the newspaper or watching television: not at all 8. Moving or speaking so slowly that other people could have noticed. Or the opposite - being so fidgety or restless that you have been moving around a lot more than usual: not at all 9. Thoughts that you would be better off or of hurting yourself in some w ay: not at all Total score: 0 Depression Screening Interpretation: Negative Depression Screening Done: Yes 26757 - PHQ-9 Billing: Yes Source: Developed by Drs. Celestine Houston, Eli Reddy, Brad Tenorio and colleagues, with an educational bharath from [employer]. Thrive Questionnaire Date Thrive assessed: 12/18/24 I am a: Patient What is your living situation today?: I have a steady place to live Within the past 12 months, did the food you bought not last and you didn't have the money to get more?: Never true Within the past 12 months, did you worry whether your food would run out before you got money to buy more?: Never true Do you have trouble paying for medicines?: No Do you have trouble getting transportation to medical appointments?: No Do you have trouble paying your heating and electricity bill?: No Do you have trouble taking care of your child, family member or friend?: Yes Do you have trouble with day-to-day activities such as bathing, preparing meals, shopping, managing finances, etc.?: Yes Are you interested in more education?: No Please select the resources that you would like help with: None Currently or been in a relationship where the following occur: No concerns reported THRIVE Score: 0 AUDIT C Alcohol Use Questionnaire (AUDIT-C) 1. How often do you have a drink containing alcohol?: Never 3. How often do you have six or more drinks on one occasion?: Never Total Score: 0 CHEIKH-7 AMB Questionnaire CHEIKH-7 Date CHEIKH - 7 assessed: 12/18/24 Feeling nervous, anxious, or on edge: 0 = Not at all Not being able to stop or control worryin = Not at all Worrying too much about different things: 0 = Not at all Trouble relaxin = Not at all Being so restless that it is hard to sit still: 0 = Not at all Becoming easily annoyed or irritable: 0 = Not at all Feeling afraid as if something awful might happen: 0 = Not at all Total CHEIKH-7 score (0-4 normal; 5-9 mild; 10-14 moderate; 15-21 severe): 0 Source: Developed by Drs. Celestine Houston, Eli Reddy, Brad Tenorio and colleagues, with an educational bharath from [employer]. CHEIKH-7 Assessment Billing CHEIKH-7 Assessment Tool: CHEIKH-7 Assessment 13332 Review of Systems Const All systems reviewed & are unremarkable except as noted in HPI and below ENT Reports no additional complaints Card Reports no additional complaints Resp Reports no additional complaints GI Reports no additional complaints Reports no additional complaints Physical exam (Primary Care) Vital Signs: Last Vital Signs Temp 97.5 F 12/18/24 10:43 Pulse 105 H 12/18/24 10:43 Resp 20 12/18/24 10:43 BP 96/62 12/18/24 10:43 Pulse Ox 100 12/18/24 10:43 Oxygen Delivery Method Room Air 12/18/24 10:43 Tobacco/Smoking Status: Tobacco use Status Tobacco use date assessed 12/18/24 12/18/24 10:50 Patient Tobacco Use Status Never used Tobacco 12/18/24 10:50 e-Cigarette/Vaping Use Never Used 12/18/24 10:43 PHQ-9: PHQ-9 Score PHQ-9: Total score 0 12/18/24 11:46 Depression Screening Interpretation: Negative Thrive Assessment: Date of Thrive Assessment Date Thrive assessed 12/18/24 12/18/24 10:50 Currently or been in a relationship where the following occur: No concerns reported Const General: ill appearing HENMT Head: Yes normal to inspection Face and sinus: Yes normal facial exam Resp Effort & Inspection: normal respiratory effort Auscultation: clear to auscultation bilaterally Cardio Rhythm: regular rhythm Heart sounds: S1 normal heart sound present and S2 normal heart sound present GI Inspection: Yes normal to inspection Palpation (GI): Soft to palpation Extrem Other: 2+ pitting edema lower extremities Coding Level of Care Code Est Pt Level 4 (11808) Diagnoses Orthostatic hypotension I95.1 Atrial fibrillation with RVR I48.91 Prostate cancer C61 Additional Codes CHEIKH-7 Assessment Billing - CHEIKH-7 Assessment Tool: CHEIKH-7 Assessment 98533 ([id number]) PHQ-9 - 99136 - PHQ-9 Billing: Yes ([id number]) Assessment & Plan Assessment & Plan (1) Orthostatic hypotension: Code(s): I95.1 - Orthostatic hypotension Category: Medical Plan: Continue fludrocortisone (2) Atrial fibrillation with RVR: Comment: Rate controlled on metoprolol, not candidate for anticoagulation due to comorbidities Code(s): I48.91 - Unspecified atrial fibrillation Category: Medical Plan: Continue metoprolol (3) Prostate cancer: Comment: s/p RTx 2018, f/u Dr. Israel 2x a year, on Xtandi Code(s): C61 - Malignant neoplasm of prostate Category: Medical Plan: Follow-up with oncology and urology
--- OUTSIDE RECORDS SUMMARY | 2024-12-18 12:11 | XMS_ITS ---
Author Organization [facility] [address] [place] Address [address] [place] [address] Care Team Providers Care Channel Opener Name Role Phone Roma Mari MD Primary Care Provider Unavaila ble Black, Emily Unavailable [phone] Allergies No Known Allergies REASON FOR VISIT Painful nail(s) aggrevated by shoes causing difficulty standing/walking, Unsteady Gait, Open sore -Toe, Foot pain Medications Medication SIG (Take, Route, Frequency, Duration) Notes Start Date End Date Status Eye Vitamins - as directed Orally Not-Taking AFO-fixed . 1 . Wear daily for . 08/07/2024 Active Metoprolol Succinate 100 MG 1 capsule Orally Once a day Not-Taking amLODIPine Benzoate Not-Taking amLODIPine Besy-Benazepril HCl 5-20 MG as directed Orally Not-Takin g Xtandi Not-Taking Meloxicam 15 MG 1 tablet Orally Once a day Not-Taking Metoprolol Succinate 100 MG 1 capsule Orally Once a day Active Probiotic Active PreserVision AREDS A ctive Betamethasone Dipropionate 0.05 % 1 application Externally Once a day Active Probiotic - as directed Orally Active predniSONE 5 MG/ML 1 tablet Orally Once a day Active Social History Tobacco Use: Social History Observation Description Date Details (start date - stop date) Never Smoker NA - NA Tobacco Use/Smoking Question Answer Notes Are you a: nonsmoker Additional Findings: Tobacco Non-User Aggressive non-smoker Alcohol Screen Question Answer Notes Did you have a drink containing alcohol in the p ast year? No Points 0 Interpretation Negative Tobacco use other than smoking: Question Answer Notes Are you an other tobacco user? 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 Vital Signs Height 5 ft 9 in in 08/07/2024 Weight 145 lbs 08/07/2024 BMI 21.41 kg/m2 08/07/2024 Blood pressure systolic 112 mm Hg 08/07/20 24 Blood pressure diastolic 76 mm Hg 024 Procedures Procedure Date Ordered Date Performed Result Body Sit e 88448-IGEZWIC NAIL, 6 OR MORE 08/07/2024 N/A 80129- Debride <25 sq cm 08/07/2024 N/A Encounters Encounter Location Date Provider Diagnosis [facility] [address] [address] 08/07/2024 Emily Black Tinea unguium B35.1 ; Right foot drop M21.371 ; Pain in right toe(s) M79.674 ; Pain in left toe(s) M79.675 ; Unsteady gait R26.81 ; Skin ulcer of toe of left foot, limited to breakdown of skin L97.521 and 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 pdf (WOUND CARE INSTRUCTIONS. 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 1 . Wear daily for . 08/07/2024 Treatment Notes Assessment Notes Skin ulcer of toe of left fo ot, limited to breakdown of skin Patient Educated with: WOUND CARE INSTRUCTIONS.pdf (WOUND CARE INSTRUCTIONS.pdf) Pending Test Test Name Order Date 23958-KDAQYBV NAIL, 6 OR MORE 08/07/2024 14075- Debride <25 sq cm 08/07/2024 Next Appt Details Follow Up: 2 Months, Reason: Provider Name:Emiyl Davidson , 02/19/2025 10:15:00 AM, [address] [place], [address], Procedure Notes * Category Sub-Category Detail Notes Debride Nail 6-10 Nail debridement Performance o f this nail treatment by a nonprofessional would put this patients foot and overall health at risk. Therefore, nail debridement was performed extensively to reduce/remove overall nail length, girth, thickness, subungual debris, and necrotic tissue, by manual and/or electrical means through the use of a nail nipper and/or dremel-type broach grinder, to a more viable healthy nail plate or bed tissue 6-10. Silver nitrate used for any petechial bleeding as necessary. Definitive antifungal treatment options have been reviewed and discussed with the patient. The patient chooses, no pharmaceutical tx - [address]55 Debride skin< 25 sq cm Open wound Physician of record performed open wound selective debridement of first 25 sq cm or less, of devitilized necrotic/nonviable soft tissue, fibrin, and exudate extending from the epidermis through the dermis, utilizing sharp dissection with sterile 15 blade, and/or tissue nippers. Sterile antibiotic dressing applied, ANESTHESIA- was accomplished TOPICALLY with Lidocaine Hydrochloride Jelly 2 percent. Hemostasis was achieved through direct pressure. Post debridement measurements:11 mm x 8mm x 2 mm,. 8mm X 5mm X 2mm Character of the wound post debridement is stable (49378) Progress Notes * Guillaume ARAGON DDOB:[birth year] (83 yo M)Acc No.[id number]:08/07/2024 Progress Note Patient:?Guillaume Aragon Provider:?Emily Davidson DPM :1940???Age:83 Y???Sex:Male Maurice e:08/07/2024 Address:[place], [id number] Pcp:Roma Mari MD Subjective: * Chief Complaints: * ???Painful nail(s) aggrevate d by shoes causing difficulty standing/walkingUnsteady GaitOpen sore - ToeFoot pain * HPI: ???Painful Nails:?Pt States Last PCP Visit:?Date:?07/27/2024 ???Skin problems:?Nature:?Open sore.?Onset/Cause:?pt fell.?Treatments:?, none.?Foot Pain:?Nature:?, numbness right , unsteady gait.? * ROS:?General/Constitutional:?Nausea?denies.?Vomiting?denies.?Hunger Thirst?denies.?Loss appetite?denies.?Chills?denies.?Fatigue?denies.?Fever?denies.?Night Sweats?denies.?Unexplained weight loss?denies.?Unexplained weight gain?denies.?HEENTM:?Dentures?denies.?Dizziness?denies.?Glasses/contacts?admits.?Retinopathy?de nies.?Blurred/double vision?denies.?TMJ?denies.?Discharge/drainage?denies.?Implants?denies.?Sore throat?denies.?Dental implants?denies.?Hard of hearing ?admits.?Difficulty chewing/swallowing/speaking?denies.?Nose bleeds?denies.?Sore mouth?denies.?Respiratory:?On Oxygen?denies.?Pneumonia/pleurisy?denies.?Bronchitis?denies.?Emphysema?denies.?C oughing?denies.?Cough blood?denies.?Shortness of breath?denies.?Wheezing?denies.?Cardiovascular:?Pacemaker?denies.?MVP?denies.?WPW?denies.?CHF?denies.?Heart attack?denies.?Septal defect?denies.?Rapid beat?denies.?Chest pain ?denies.?Atrial Fib.?denies.?Murmur/Palpitations?denies.?Gastrointestinal:?Hemorrhoids?denies.?Stomach/Abdominal pain?denies.?Dark blood stool?denies.?Irritable bowel ?denies.?Constipation?denies.?Diarrhea?denies.?Hematology:?Swelling?denies.?Clots?denies.?Varicose Veins?denies.?Bruising?admits.?Bleeding problem?denies.?Genitourinary:?Blood urine?denies.?Frequent/Painfu/urination/bladder control?denies.?Kidney stones?denies.?Infection (UTI)?denies.?Nephropathy?denies.?sex trans dis (STD)?denies.?Prostate?admits.?Musculoskeletal:?Hammertoes?denies.?Bunions?denies.?Back Pain?denies.?Muscle Cramps/ Resting?denies.?Muscle cramps / walking?denies.?Generalized aches and pains?admits.?Weakness?denies.?Integ.:?Jurado?denies.?Scars?denies.?Corns/calluses?admits.?Ingrown nails?denies.?Painful nails?admits.?Open Sores?admits.?Rashes?denies.?Neurologic:?Difficulty sleeping?denies.?Brain disorder?denies.?Numbness?denies.?Balance trouble?denies.?Confusion?denies.?Fainting/blackouts?denies.?Tingling?denies.?Tr emors?denies.? * Medical History:? * Surgical History:?TURP (quiñonez surethral resection of the prostate) 2019shoulder surgery Right Rotator Cuff Right Hand/Claw Hand cataract surgery L Eye * Hospitalization/Major Diagno stic Procedure:?[facility]- RSV 08/09chemo 07/28/2024fib 06/2024fainted 07/2024 * Family History:?Mother: dece ased, colon cancer, diagnosed with Unspecified essential hypertension, Other malignant neoplasm of unspecified site.?Father: , diagnosed with Unspecified essential hypertension.? * Social History:?Tobacco Use:?Tobacco Use/Smoking?Are you a:?nonsmoker ?Additional Findings: Tobacco Non-User?Aggressive non-smoker ?Tobacco use other than smoking?Are you an other tobacco user??No ???Drugs/Alcohol:?Drugs?Have you used drugs other than those for medical reasons in the past 12 months??No ?Alcohol Screen?Did you have a drink containing alcohol in the past year??No ?Points?0 ?Interpretation?Negative ???Miscellaneous:?Caffeine: yes, frequency:, 1-2 cups per day. ?Children: yes. ?Exercise: yes, Gardening. ?Marital status: . 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 * Medications:?TakingpredniSON E 5 MG/ML Concentrate 1 tablet Orally Once a dayBetamethasone Dipropionate 0.05 % Cream 1 application Externally Once a dayProbiotic - Tablet Delayed Release as directed Orally Probiotic PreserVision AREDS Metoprolol Succinate 100 MG Capsule ER 24 Hour Sprinkle 1 capsule Orally Once a dayTaking predniSONE 5 MG/ML Concentrate 1 tablet Orally Once a dayTaking Betamethasone Dipropionate 0.05 % Cream 1 application Externally Once a dayTaking Probiotic - Tablet Delayed Release as directed Orally Taking Probiotic Taking PreserVision AREDS Taking Metoprolol Succinate 100 MG Capsule ER 24 Hour Sprinkle 1 capsule Orally Once a dayNot-Taking/PRNXtandi Meloxicam 15 MG Tablet 1 tablet Orally Once a dayEye Vitamins - Capsule as directed Orally Metoprolol Succinate 100 MG Capsule ER 24 Hour Sprinkle 1 capsule Orally Once a dayamLODIPine Benzoate amLODIPine Besy-Benazepril HCl 5-20 MG Capsule as directed Orally Medication List reviewed and reconciled with the patientNot-Taking/PRN Xtandi Not-Taking/PRN Meloxicam 15 MG Tablet 1 tablet Orally Once a dayNot-Taking/PRN Eye Vitamins - Capsule as directed Orally Not-Taking/PRN Metoprolol Succinate 100 MG Capsule ER 24 Hour Sprinkle 1 capsule Orally Once a dayNot-Taking/PRN amLODIPine Benzoate Not-Taking/PRN amLODIPine Besy-Benazepril HCl 5-20 MG Capsule as directed Orally Medication List reviewed and reconciled with the patient * Allergies:?N.K.D.A.yes[Aller gies Verified] Objective: * Vitals:?Ht: 5 ft 9 in, Wt: 1 45, BMI: 21.41, Shoe size: 10.5, BP: 112/76 mm Hg, Ht-cm: 175.26 cm, Wt-k.77 kg. * Examination: ???General Examination: ?GENERAL APPEARANCE:?Reveals a pleasant, alert, well nourished, well- developed, well hydrated individual, who demonstrates proper attention to hygiene/body habitus, and is in no acute distress, Pt serves as own historian for office visit today , Pt accompanied by , , who serves as , additional Historian , and/who is physically present in exam room at time of visit.?ORIENTED:?person, place, and time.?Orthopedic: ?MUSCLE STRENGTH:?, Generalized decrease in strength , Right , Drop foot , Right , Decreased with DF.?GAIT ABNORMALITY:?unstable/unsteady relating occasional difficulty with balance , B/L.?BUNION:?Dorso-Medially prominent 1st MPJ, b/l.?DIGITAL DEFORMITIES:?Digital contracture, PIPJ, 2-5 B/L, non-reducible with WB or to push-up test, multiple overlapping.?FOOTWEAR:?shoe gear properties exacerbate patients foot/toe deformity.?Neurological: ?SENSORY:?Neurological exam demonstrates reduced sharp/dull pin prick discrimination reduced light touch sensation reduced vibration sensation reduced proprioception sensation in a stocking fashion 5.07 monofilament test performed at plantar aspects of 5 varied sites per foot shows sensation plantar aspects absent at Forefoot b/l.?Dermatologic: ?SKIN FINDINGS:?Skin exam reveals normal color, texture, elasticity, and turgor. There are no masses, nor excrescences. The interspaces are clear, B/L.?ULCER:? LOCATION, Dorsal, T1, SIZE, 10mm X 8 mm X 2mm, BASE, granular, RIM, hyperkeratotic, UNDERMINING, absent, TRACKING, Full thickness breakdown of skin, DRAINAGE, serosanguineous, mild, NECROTIC TISSUE, loosely-adherent, yellow slough, MALODOR, absent, CALOR, absent, ERYTHEMA, absent, PAIN ON PALPATION,absent?LOCATION, DorsalT4, , SIZE, 6mm X 5mm X 2mm, BASE, granular, RIM, hyperkeratotic, UNDERMINING, absent, TRACKING, Full thickness breakdown of skin, DRAINAGE, serosanguineous, mild, NECROTIC TISSUE, loosely-adherent, yellow slough, MALODOR, absent, CALOR, absent, ERYTHEMA, absent, PAIN ON PALPATION,absent.?Vascular: ?DP PULSES(B):?10/21, B/L.?PT PULSES(B):?10/21, B/L.?Nails: ?NAILS are:?Elongated, overgrown, dystrophic, lytic, greater than 3mm thick, discolored and friable with crumbly malodorous subungual debris, with dull to no pain on palpation due to neuropathy, 12,4, Left foot , 1-5 Right foot.? Assessment: * Assessment: 1.?Tinea unguium - B35.1?2.? 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 Plan: * Treatment: 2.?Tinea unguium?Procedure: 81463-PGSQXSH NAIL, 6 OR MORE 3.?Skin ulcer of toe of left foot, limited to breakdown of skin?Procedure: 86408- Debride <25 sq cm Notes: Patient Educated with: WOUND CARE INSTRUCTIONS.pdf (WOUND CARE INSTRUCTIONS.pdf)?? * Procedures:?Debride Nail 6-10:?Nail debridement?Performance of this nail treatment by a nonprofessional would put this patients foot and overall health at risk. Therefore, nail debridement was performed extensively to reduce/remove overall nail length, girth, thickness, subungual debris, and necrotic tissue, by manual and/or electrical means through the use of a nail nipper and/or dremel-type broach grinder, to a more viable healthy nail plate or bed tissue 6-10. Silver nitrate used for any petechial bleeding as necessary. Definitive antifungal treatment options have been reviewed and discussed with the patient. The patient chooses, no pharmaceutical tx - 27883.?Debride skin< 25 sq cm:?Open wound?Physician of record performed open wound selective debridement of first 25 sq cm or less, of devitilized necrotic/nonviable soft tissue, fibrin, and exudate extending from the epidermis through the dermis, utilizing sharp dissection with sterile 15 blade, and/or tissue nippers. Sterile antibiotic dressing applied, ANESTHESIA- was accomplished TOPICALLY with Lidocaine Hydrochloride Jelly 2 percent. Hemostasis was achieved through direct pressure. Post debridement measurements:11 mm x 8mm x 2 mm,. 8mm X 5mm X 2mm Character of the wound post debridement is stable (02137).? * Procedure Codes:?79525 DEBRI DE NAIL, 6 OR MORE, Modifiers: XS 91071 ACTIVE WOUND CARE/20 CM OR <, Modifiers: XS * Preventive Medicine:? ??Counseling:?Discussion:?-14: Office or other outpatient visit for the evaluation and management of an established patient, which required a medically appropriate history and/or examination and MODERATE level of DECISION MAKING for: 1 OR MORE CHRONIC PROBLEM(S) THATS WORSENING, 2 STABLE CHRONIC PROBLEMS, A NEWLY DIAGNOSED PROBLEM WITH UNCERTAIN PROGNOSIS, AN ACUTE COMPLICATED INJURY WITH MULTIPLE TREATMENT OPTIONS, OR AN ACUTE PROBLEM WITH ACCOMPANYING SYSTEMIC SYMPTOMS, THAT POSE(S) A MODERATE RISK OF MORBIDITY. THIS CONDITION MAY ALSO INCLUDE RX DRUG MANAGEMENT, OR A DECISON FOR MINOR SURGERY. The visit on the day of the encounter encompassed interpreting the data and educating the patient as to the nature of their condition, treatment options available according to their individual PMH, meds, allergies, and overall health/living conditions, as well as any potential risks or complications that may occur from a failure to adhere to, and participate in, the recommended course of therapy. The discussion included a complete verbal, and/or written explanation of the examination results, any x-rays taken, the proposed diagnosis, and outline of the treatment plan. A schedule for future care needs was also explained. The patient verbalized an understanding of the instructions at this time and agreed to be an active participant in their treatment. If the patient should think of any questions or concerns after the visit, I have encouraged the patient to call the office.?BioMech.:?I discussed the Pts foot biomechanics with them and how it relates to their problem,.?Neuritis/Neuropathy:?The patient was counseled on the diagnosis, possible etiologies (including mechanical stress, injury, entrapment, chemotherapy, diabetes, vertebral disk herniation if Hx), treatment options, and importance for adherence to recommendations in order to address the patients Neuritis/Neuropathy. The advantages and disadvantages re: Accommodative mechanical support/offloading, Topical vs PO analgesics including asper cream/Voltaren gel/Lidoderm patches/Neurontin/Lyrica along with their potential side effects were discussed with the patient to their satisfaction. Also discussed the use of therapeutic injectable cortisone if needed. Surgical treatment, if considered an option, was discussed as well. If surgery is warranted, we discussed the potential successful outcomes as well as the possible complications such as failure, painful scar, permanent tingling/numbness/neuralgia/or intractable pain. Patient questions re: medication use, dosage, and possible side effects and drug interactions were reviewed and the answers to each understood. If the condition worsens, the patient was instructed to contact the office for an appointment. The patient verbally confirmed a full understanding of the above, Discussed that neuropathy could be related to Chemotherapy he is receiving for the prostate cancer.?Physical Therapy:?Discussed the potential short and paedodontist benefits of physical therapy including pain relief, improved function for activity of daily life, return to exercise, increased quality of life. We discussed the usual/customary PT treatment schedule of 2-3 times per week for 4 weeks to as much as 12 weeks depending on insurance approval/coverage. We discussed various PT treatment modalities including, but not limited to, gate training, muscular stabilization, stretching, deep tissue therapeutic massage, ultrasound, TENS, iontophoresis, fluidotherapy, laser therapy, hydrotherapy, contrast ice/heat bath, and passive as well as active ROM exercises. Questions re: PT including visit amounts, rates of success, and goals were answered to the patient's satisfaction. The patient verbally confirmed the medical necessity and use of PT therapy treatment for their MSK condition. Pt states PT and OT are swcheduled to start today at home for him. Disccused an AFO brace- a RX is given and pt is referred tgo P&O..?Shoe Gear Counseling:?The patient and I reviewed the types of shoes they should be wearing. My recommendation included obtaining a well-fitted shoe with a good supportive, non-foldable nor twistable sole, plenty of toe/room for the forefoot, and proper arch support. Based on todays examination, I recommended the patient look for new shoes, by having their feet professionally measured. We discussed that generally the best time of the day for a shoe fitting is the afternoon. Different shoes types and brands to best match the patients occupation and vocation were discussed. Specific brand selection will be up to the patient, their individual foot condition/deformities, and fit. The patient and I reviewed the standard new shoe break in period by wearing them for a few hours a day while checking for redness or sores as wear time is increased. The patient verbally confirmed to understanding the information discussed.?Ulcer:?A detailed plan of care was reviewed with the patient. We emphasized the fact that the patient takes on an active participating role in the treatment process and emphasized to them that they are an included, valued, and important member of the wound healing team in order to reach an expedient successful outcome. The patient agreed to follow their medically recommended diet while increasing their protein intake if safely able to do so, maintain proper bodily hydaration, abide by weight-bearing restrictions at all times, quit all current smoking habits if any, and diligently follow any/all dressing change instructions. It was clearly made known to the patient that if they fail to do their part, they will likely extend their course of treatment as well as possibly increase their risk of adverse events including amputation. The patient was instructed on importance of proper wound care consisting of pressure reduction, and proper maintainance of a moist wound environment. The patient is to cleanse the wound with warm soapy water/peroxide/saline, or betadine BID based on product availability. The patient is to apply ( Neosporin, Polysporin, or Triple, ) Antibiotic to the wound and cover with a DSD as directed. The patient was instructed to change dressings according to orders, or PRN saturation, leaks. The patient was instructed to monitor and report any signs or symptoms of infection or any untoward reactions. Precautions Taken: Offloading/Pressure reduction via rest/ limited activity to essential to daily life only, cane/ crutches/ walker/ knee scooter/ wheel chair, shoe modification, accommodative padding, sharp debridement, and take/apply medication as directed. THE GOALS of wound debridement to remove devitilized tissue, decrease risk for infection, promote wound healing and prevent further complication were discussed/reviewed. Debridement frequency as indicated, Every 9-12 weeks until healed.? * Follow Up:?2 Months * Images: * Sign off status: Completed true * Provider:?Emily Davidson DPM Date:?2023 Generated for Printi ng/Junaid/eTransmitting on:?12/18/2024 12:11 PM EST History and Physical Notes * HPI (History of Present Illness) Category Sub-Category Detail Notes Category Not es Painful Nails Pt States Last PCP Visit: Date:: 07/27/2024 Skin problems Nature: Open sore Onset/Cause: pt fell Treatments: , none Foot Pain Nature: , numbness right , unsteady gait Examination Category Sub-Category Detail Notes Category Not es Neurological SENSORY: Neurological exa m demonstrates reduced sharp/dull pin prick discrimination reduced light touch sensation reduced vibration sensation reduced proprioception sensation in a stocking fashion 5.07 monofilament test performed at plantar aspects of 5 varied sites per foot shows sensation plantar aspects absent at Forefoot b/l TINEL'S COMPRESSION: Dermatologic SKIN FINDINGS: Skin exam reveal s normal color, texture, elasticity, and turgor. There are no masses, nor excrescences. The interspaces are clear, B/L ULCER: LOCATION, Dorsal, T1 , SIZE, 10mm X 8 mm X 2mm, BASE, granular, RIM, hyperkeratotic, UNDERMINING, absent, TRACKING, Full thickness breakdown of skin, DRAINAGE, serosanguineous, mild, NECROTIC TISSUE, loosely- adherent, yellow slough, MALODOR, absent, CALOR, absent, ERYTHEMA, absent, PAIN ON PALPATION,absent LOCATION, DorsalT4, , SIZE, 6mm X 5mm X 2mm, BASE, granular, RIM, hyperkeratotic, UNDERMINING, absent, TRACKING, Full thickness breakdown of skin, DRAINAGE, serosanguineous, mild, NECROTIC TISSUE, loosely-adherent, yellow slough, MALODOR, absent, CALOR, absent, ERYTHEMA, absent, PAIN ON PALPATION,absent Orthopedic GAIT ABNORMALITY: unstable/unste stacy relating occasional difficulty with balance , B/L BUNION: Dorso-Medially promi nent 1st MPJ, b/l FOOTWEAR: shoe gear properties exacerbate patients foot/toe deformity DIGITAL DEFORMITIES: Digital contracture , PIPJ, 2-5 B/L, non-reducible with WB or to push-up test, multiple overlapping MUSCLE STRENGTH: , Generalized decrea se in strength , Right , Drop foot , Right , Decreased with DF General Examination GENERAL APPEARANCE: Reveals a pleasant, alert, well nourished, well-developed, well hydrated individual, who demonstrates proper attention to hygiene/body habitus, and is in no acute distress, Pt serves as own historian for office visit today , Pt accompanied by , , who serves as , additional Historian , and/who is physically present in exam room at time of visit ORIENTED: person, place, and t lianet Vascular DP PULSES (B): 10/21, B/L PT PULSES (B): 10/21, B/L Nails NAILS are: Elongated, overg rown, dystrophic, lytic, greater than 3mm thick, discolored and friable with crumbly malodorous subungual debris, with dull to no pain on palpation due to neuropathy, 12,4, Left foot , 1-5 Right foot
--- OUTSIDE RECORDS SUMMARY | 2024-12-18 12:11 | XMS_ITS | Patient Health Record ---
Author Organization [facility] Address [address] 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[employer] Name Role Phone Roma Mari MD Primary Care Provider Unavaila ble Black, Emily Unavailable [phone] Allergies No Known Allergies Results Component Value Reference Range Notes X ray : Foot, right 3V Reviewed date:12/28/2023 12:21:08 PM Interpretation:See Examination above Performing Lab: Notes/Report: See Examination above X ray : Foot, left 3V Reviewed date:12/28/2023 12:20:58 PM Interpretation:See Examination above Performing Lab: Notes/Report: See Examination above Reason For Referral No Information Medications Medication SIG (Take, Route, Frequency, Duration) Notes Start Date End Date Status Xtandi Not-Taking Meloxicam 15 MG 1 tablet Orally Once a day Not-Taking Eye Vitamins - as directed Orally Not-Taking Fludrocortisone Acetate 0.1 MG 1 tablet Orally Once a day Active Metoprolol Succinate 100 MG 1 capsule Orally Once a day Not-Taking predniSONE 5 MG/ML 1 tablet Orally Once a day Active amLODIPine Benzoate Not-Taking Betamethasone Dipropionate 0.05 % 1 application Externally Once a day Active amLODIPine Besy-Benazepril HCl 5-20 MG as directed Orally Not-Takin g Probiotic - as directed Orally Active Probiotic Active Ammonium Lactate 12 % 1 application Externally to affected areas of dry skin to feet except for between the toes Twice a day for 30 days Active PreserVision AREDS A ctive Metoprolol Succinate 100 MG 1 capsule Orally Once a day Active AFO-fixed . 1 . Wear daily for . 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 Problem Acquired hallux valgus (66386075) Hallux valgus (acquired), left foot (M20.12) Active confirmed Problem Acquired hallux valgus (04500310) Hallux valgus (acquired), right foot (M20.11) Active confirmed Problem 04521849 Unsteady gait (R26.81) Active confirmed Problem Ulcer of toe of right foot (disorder) (929698260219814 01) Skin ulcer of toe of right foot, limited to breakdown of skin (L97.511) Active confirmed Response to treatment Problem Localized, primary osteoarthritis of the ankle and/or foot (725008000) Arthritis of joint of lesser toe, left (M19.072) Active confirmed Problem Localized, primary osteoarthritis of the ankle and/or foot (321548016) Arthritis of joint of lesser toe, right (M19.071) Active confirmed Problem Ulcer of toe of left foot (disorder) (610404646106778 02) Skin ulcer of toe of left foot, limited to breakdown of skin (L97.521) Active confirmed Response to treatment - Improvement Vital Signs Blood pressure diastolic 72 mm Hg 11/20/2024 Height 5 ft 9 in in 11/20/2024 Blood pressure systolic 119 mm Hg 11/20/2024 Weight 152 lbs 11/20/2024 BMI 22.44 kg/m2 11/20/2024 Procedures Procedure Date Ordered Date Performed Result Body Sit e 08701-FDCEATI NAIL, 6 OR MORE 12/27/2023 N/A 36307- Debride <25 sq cm 12/27/2023 N/A 25443-OHWSUID NAIL, 6 OR MORE 04/27/2024 N/A 58918-IODUKDJ NAIL, 6 OR MORE 08/07/2024 N/A 59845- Debride <25 sq cm 08/07/2024 N/A 15347-EDEVLHJ NAIL, 6 OR MORE 11/20/2024 N/A 05912- Debride <25 sq cm 11/20/2024 N/A 87859-FEVW SKIN LESION 11/20/2024 N/A Encounters Encounter Location Date Provider Diagnosis [address] [address] 12/27/2023 Emily Black Tinea unguium B35.1 ; Pain in right toe(s) M79.674 ; Pain in left toe(s) M79.675 ; Pain in left foot M79.672 ; Pain in left ankle and joints of left foot M25.572 ; Bursitis of left foot M77.52 ; Hallux valgus (acquired), left foot M20.12 ; Pain in right foot M79.671 ; Pain in right ankle and joints of right foot M25.571 ; Bursitis of right foot M77.51 ; Hallux valgus (acquired), right foot M20.11 ; Other hammer toe(s) (acquired), right foot M20.41 ; Arthritis of joint of lesser toe, right M19.071 ; Other hammer toe(s) (acquired), left foot M20.42 ; Arthritis of joint of lesser toe, left M19.072 ; Subluxation of metatarsophalangeal joint of toe, initial encounter S93.149A and Skin ulcer of toe of left foot, limited to breakdown of skin L97.[address] [address] 04/27/2024 Emily Black Tinea unguium B35.1 ; Pain in right toe(s) M79.674 ; Pain in left toe(s) M79.675 ; Hallux valgus (acquired), left foot M20.12 ; Hallux valgus (acquired), right foot M20.11 ; Other hammer toe(s) (acquired), right foot M20.41 ; Arthritis of joint of lesser toe, right M19.071 ; Other hammer toe(s) (acquired), left foot M20.42 ; Arthritis of joint of lesser toe, left M19.072 and Unsteady gait R26.81 [facility] [address] [address] 08/07/2024 Emily Black Tinea unguium B35.1 ; Right foot drop M21.371 ; Pain in right toe(s) M79.674 ; Pain in left toe(s) M79.675 ; Unsteady gait R26.81 ; Skin ulcer of toe of left foot, limited to breakdown of skin L97.521 and Polyneuropathy due to other toxic agents G62.2 [facility] [address] 11/20/2024 Emily Black Right foot drop M21. 371 ; Xerosis of skin L85.3 ; Tinea unguium B35.1 ; Pain in right toe(s) M79.674 ; Pain in left toe(s) M79.675 ; Unsteady gait R26.81 ; Skin ulcer of toe of left foot, limited to breakdown of skin L97.521 and Polyneuropathy due to other toxic agents G62.2 Assessments Encounter Date Diagnosis (ICD Code) Assessment Notes Treatment Notes Treatment Clinical Notes Section Notes 12/27/2023 Tinea unguium (ICD-1 0 - B35.1) 04/27/2024 Tinea unguium (ICD-1 0 - B35.1) 04/27/2024 Pain in right toe(s) (ICD-10 - M79.674) 08/07/2024 Tinea unguium (ICD-1 0 - B35.1) 08/07/2024 Right foot drop (ICD -10 - M21.371) Rx management (4) 11/20/2024 Xerosis of skin (ICD -10 - L85.3) 11/20/2024 Right foot drop (ICD -10 - M21.371) 11/20/2024 Tinea unguium (ICD-1 0 - B35.1) 08/07/2024 Pain in right toe(s) (ICD-10 - M79.674) 04/27/2024 Pain in left toe(s) (ICD-10 - M79.675) 12/27/2023 Pain in right toe(s) (ICD-10 - M79.674) 12/27/2023 Pain in left toe(s) (ICD-10 - M79.675) 04/27/2024 Hallux valgus (acquired), 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 - M20.12) 08/07/2024 Pain in left toe(s) (ICD-10 - M79.675) 11/20/2024 Pain in right toe(s) (ICD-10 - M79.674) 11/20/2024 Pain in left toe(s) (ICD-10 - M79.675) 08/07/2024 Unsteady gait (ICD-1 0 - R26.81) 04/27/2024 Hallux valgus (acquired), right foot (ICD-10 - M20.11) 12/27/2023 Pain in left ankle a nd joints of 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 - M25.572) 12/27/2023 Pain in 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 - M79.672) 12/27/2023 Bursitis of left humaira t (ICD-10 - M77.52) 04/27/2024 Other hammer toe(s) (acquired), right foot (ICD-10 - M20.41) 08/07/2024 Skin ulcer of toe of left foot, limited to breakdown of skin (ICD-10 - L97.521) Response to treatment,Nonap plicable Patient Educated with: WOUND CARE INSTRUCTIONS .pdf (WOUND CARE INSTRUCTIONS .pdf) 11/20/2024 Unsteady gait (ICD-1 0 - R26.81) 11/20/2024 Skin ulcer of toe of left foot, limited to breakdown of skin (ICD-10 - L97.521) Response to treatment - Improvement Patient Educated with: WOUND CARE INSTRUCTIONS .pdf (WOUND CARE INSTRUCTIONS .pdf) 04/27/2024 Arthritis of joint o f lesser toe, 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) 08/07/2024 Polyneuropathy due t o other toxic agents (ICD-10 - G62.2) 12/27/2023 Hallux valgus (acquired), 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 - M20.12) 12/27/2023 Pain in right foot (ICD-10 - M79.671) 11/20/2024 Polyneuropathy due t o other toxic agents (ICD-10 - G62.2) 04/27/2024 Other hammer toe(s) (acquired), 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 - M20.42) 12/27/2023 Pain in right ankle and joints of right foot (ICD-10 - M25.571) 04/27/2024 Arthritis of joint o f lesser toe, left (ICD-10 - M19.072) 12/27/2023 Bursitis of right fo ot (ICD-10 - M77.51) 04/27/2024 Unsteady gait (ICD-1 0 - R26.81) 12/27/2023 Hallux valgus (acquired), right foot (ICD-10 - M20.11) 12/27/2023 Other hammer toe(s) (acquired), right foot (ICD-10 - M20.41) 12/27/2023 Arthritis of joint o f lesser toe, 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) 12/27/2023 Other hammer toe(s) (acquired), 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 - M20.42) 12/27/2023 Arthritis of joint o f lesser toe, left (ICD-10 - M19.072) 12/27/2023 Subluxation of metatarsophalangeal joint of toe, initial encounter (ICD-10 - S93.149A) 12/27/2023 Skin ulcer of toe of left foot, limited to breakdown of skin (ICD-10 - L97.521) Patient Educated with: WOUND CARE INSTRUCTIONS .pdf (WOUND CARE INSTRUCTIONS .pdf) 12/27/2023 Other 04/27/2024 Other 08/07/2024 Other Plan Of Treatment Pending Test Test Name Order Date 83849-XGBLYBN NAIL, 6 OR MORE 12/27/2023 72723-JXKJDBM NAIL, 6 OR MORE 04/27/2024 18205-IGAMZBO NAIL, 6 OR MORE 08/07/2024 73719-VVINZKK NAIL, 6 OR MORE 11/20/2024 31250- Debride <25 sq cm 11/20/2024 43492- Debride <25 sq cm 08/07/2024 50329- Debride <25 sq cm 12/27/2023 59176-VNHW SKIN LESION 11/20/2024 Next Appt Details Provider Name:Emily Davidson , 02/19/2025 10:15:00 AM, [address] [place], [address], Insurance Providers Payer Name Payer Address Payer Phone Subscriber Number Group Number Insured Name Patient Relationship to Insured Coverage Start Date Coverage End Date Medicare [employer] [address] [place] [address] [id number] Guillaume Multani i Self - patient is the insured [employer] [address] [place] [address] [id number] Guillaume Multani i Self - patient is the insured Medical (General) History Medical History History ICD Code Anemia Broken bones Cataracts Gout High blood pressure Macular degeneration Numbness Chicken pox Prostate cancer Surgical History Surgery Date(Month/Year) TURP (transurethral resection of the pro state) 2019 shoulder surgery Right Rotator Cuff Right Hand/Claw Hand cataract surgery L Eye Hospitalization History Reason Date(Month/Year) fainted 07/2024 afib 06/2024 chemo 07/28/2024 [facility]- RSV 08/09
--- OUTSIDE RECORDS SUMMARY | 2024-12-18 12:11 | XMS_ITS ---
Author Organization [facility] [place] Address [address] [facility] [place] [address] Care Team Providers Care Clinical Staff Educator Name Role Phone Roma Mari MD Primary Care Provider Unavaila ble Black, Emily Unavailable [phone] Allergies No Known Allergies REASON FOR VISIT Painful nail(s) aggrevated by shoes causing difficulty standing/walking, Open sore - Toe, Foot pain, Skin problem(s) Medications Medication SIG (Take, Route, Frequency, Duration) Notes Start Date End Date Status predniSONE 5 MG/ML 1 tablet Orally Once a day Active Betamethasone Dipropionate 0.05 % 1 application Externally Once a day Active Probiotic - as directed Orally Active Probiotic Active PreserVision AREDS A ctive Fludrocortisone Acetate 0.1 MG 1 tablet Orally Once a day Active Metoprolol Succinate 100 MG 1 capsule Orally Once a day Not-Taking amLODIPine Benzoate Not-Taking amLODIPine Besy-Benazepril HCl 5-20 MG as directed Orally Not-Takin g Ammonium Lactate 12 % 1 application Externally to affected areas of dry skin to feet except for between the toes Twice a day for 30 days Active Xtandi Not-Taking Meloxicam 15 MG 1 tablet Orally Once a day Not-Taking Eye Vitamins - as directed Orally Not-Taking Metoprolol Succinate 100 MG 1 capsule Orally Once a day Active AFO-fixed . 1 . Wear daily for . 08/07/2024 Active Social History Tobacco Use: Social History Observation Description Date Details (start date - stop date) Never Smoker NA - NA Tobacco Use/Smoking Question Answer Notes Are you a: nonsmoker Additional Findings: Tobacco Non-User Aggressive non-smoker Tobacco use other than smoking: Question Answer Notes Are you an other tobacco user? No Vital Signs Height 5 ft 9 in in 11/20/2024 Weight 152 lbs 11/20/2024 BMI 22.44 kg/m2 11/20/2024 Blood pressure systolic 119 mm Hg 11/20/19 25 Blood pressure diastolic 72 mm Hg 025 Procedures Procedure Date Ordered Date Performed Result Body Sit e 39992-IQUXCCZ NAIL, 6 OR MORE 11/20/2024 N/A 91138- Debride <25 sq cm 11/20/2024 N/A 18703-WEIN SKIN LESION 11/20/2024 N/A Encounters Encounter Location Date Provider Diagnosis [facility] [address] [address] 11/20/2024 Emily Black Right foot drop M21.371 ; Xerosis of skin L85.3 ; Tinea unguium B35.1 ; Pain in right toe(s) M79.674 ; Pain in left toe(s) M79.675 ; Unsteady gait R26.81 ; Skin ulcer of toe of left foot, limited to breakdown of skin L97.521 and 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 pdf (WOUND CARE INSTRUCTIONS. pdf) 11/20/2024 Polyneuropathy due to other toxic agents (ICD-10 - G62.2) Plan Of Treatment Medication Medication Name Sig Start Date Stop Date Notes Ammonium Lactate 12 % 1 application Exte rnally to affected areas of dry skin to feet except for between the toes Twice a day for 30 days Treatment Notes Assessment Notes Skin ulcer of toe of left fo ot, limited to breakdown of skin Patient Educated with: WOUND CARE INSTRUCTIONS.pdf (WOUND CARE INSTRUCTIONS.pdf) Pending Test Test Name Order Date 29507-CAKSSIB NAIL, 6 OR MORE 11/20/2024 59053- Debride <25 sq cm 11/20/2024 24491-TCMW SKIN LESION 11/20/2024 Next Appt Details Follow Up: 3 Months, Reason: Provider Name:Emily Davidson , 02/19/2025 10:15:00 AM, [address] [place] [address], [phone], Procedure Notes * Category Sub-Category Detail Notes Debride Nail 6-10 Nail debridement Due to the cl inical pathology outlined in the exam findings, performance of this nail treatment is medically necessary as its management by an unskilled/untrained nonprofessional would put this patients foot and overall health at risk. Therefore, debridement to affected nail(s), as described in exam ( T5, T6, T7, T8, T9, TA, T2, T3, ), was performed exclusively by the physician of record to reduce/remove overall nail length, girth, thickness, subungual debris, and necrotic tissue, by manual and/or electrical means through the use of a nail nipper and/or dremel-type centerless grinder operator, to a more viable healthy nail plate or bed tissue 6-10 nails in total. Silver nitrate was used for any petechial bleeding as necessary. Definitive antifungal treatment options, both pharmaceutical and surgical, have been reviewed and discussed with the patient. The patient solely prefers the use of intermittent/as needed professional debridement services for their nail condition and understands the need for additional periodic treatments to maintain effectiveness in symptomatic relief - 03913 Debride skin< 25 sq cm Open wound [...] was achieved through direct pressure. Post debridement measurements:4 mm x 4mm x 2 mm,. 8mm X 5mm X 2mm Character of the wound post debridement is stable (57046) Keratoma Treatment Parring or Cutting o f Benign Hyperkeratotic Lesion(s) (-55) 1 Lesion - Due to the at risk nature of the patients medical condition as documented in the exam findings, performance of this keratoderma treatment is medically necessary as its management by an unskilled/untrained nonprofessional would put this patients foot and overall health at risk. Therefore, the benign hyperkeratotic lesion, 1 in total, as stated and described in the exam ( T4 ), was pared, and/or cut utilizing a sterile 15 blade, tissue nippers, and/or power dremel instrumentation by the physician of record - 03390 Progress Notes * Guillaume ARAGON DDOB:[birth year] (84 yo M)Acc No.[id number]:11/20/2024 Progress Note Patient:?Guillaume ARAGON Provider:?Emily Davidson DPM :1940???Age:84 Y???Sex:Male Maurice e:11/20/2024 [facility] Pcp:Roma Mari MD Subjective: * Chief Complaints: * ???Painful nail(s) aggrevate d by shoes causing difficulty standing/walkingOpen sore - ToeFoot painSkin problem(s) * HPI: ???Painful Nails:?Pt States Last PCP Visit:?Date:?10/17/2024 ???Foot Pain:?Nature:?, numbness right , unsteady gait.?Treatments:?AFO brace.?Skin problems:?Nature:?dryness , scaling.?Location:?B/L .?Duration:?several days.?Course:?worse.? * ROS:?General/Constitutional:?Nausea?denies.?Vomiting?denies.?Hunger Thirst?denies.?Loss appetite?denies.?Chills?denies.?Fatigue?denies.?Fever?denies.?Night Sweats?denies.?Unexplained weight loss?denies.?Unexplained weight gain?denies.?HEENTM:?Dentures?denies.?Dizziness?denies.?Glasses/contacts?admits.?Retinopathy?de nies.?Blurred/double vision?denies.?TMJ?denies.?Discharge/drainage?denies.?Implants?denies.?Sore throat?denies.?Dental implants?denies.?Hard of hearing ?admits.?Difficulty chewing/swallowing/speaking?denies.?Nose bleeds?denies.?Sore mouth?denies.?Respiratory:?On Oxygen?denies.?Pneumonia/pleurisy?denies.?Bronchitis?denies.?Emphysema?denies.?C oughing?denies.?Cough blood?denies.?Shortness of breath?denies.?Wheezing?denies.?Cardiovascular:?Pacemaker?denies.?MVP?denies.?WPW?denies.?CHF?denies.?Heart attack?denies.?Septal defect?denies.?Rapid beat?denies.?Chest pain ?denies.?Atrial Fib.?denies.?Murmur/Palpitations?denies.?Gastrointestinal:?Hemorrhoids?denies.?Stomach/Abdominal pain?denies.?Dark blood stool?denies.?Irritable bowel ?denies.?Constipation?denies.?Diarrhea?denies.?Hematology:?Swelling?denies.?Clots?denies.?Varicose Veins?denies.?Bruising?admits.?Bleeding problem?denies.?Genitourinary:?Blood urine?denies.?Frequent/Painfu/urination/bladder control?denies.?Kidney stones?denies.?Infection (UTI)?denies.?Nephropathy?denies.?sex trans dis (STD)?denies.?Prostate?admits.?Musculoskeletal:?Hammertoes?denies.?Bunions?denies.?Back Pain?denies.?Muscle Cramps/ Resting?denies.?Muscle cramps / walking?denies.?Generalized aches and pains?admits.?Weakness?denies.?Integ.:?Jurado?denies.?Scars?denies.?Corns/calluses?admits.?Ingrown nails?denies.?Painful nails?denies.?Open Sores?admits.?Rashes?denies.?Neurologic:?Difficulty sleeping?denies.?Brain disorder?denies.?Numbness?denies.?Balance trouble?denies.?Confusion?denies.?Fainting/blackouts?denies.?Tingling?denies.?Tr emors?denies.? * Medical History:? * Surgical History:?TURP (quiñonez surethral resection of the prostate) 2019shoulder surgery Right Rotator Cuff Right Hand/Claw Hand cataract surgery L Eye * Hospitalization/Major Diagno stic Procedure:?[facility]- RSV 08/09chemo 07/28/2024fib 06/2024fainted 07/2024 * Family History:?Mother: dece ased, colon cancer, diagnosed with Other malignant neoplasm of unspecified site, Unspecified essential hypertension.?Father: , diagnosed with Unspecified essential hypertension.? * Social History:?Tobacco Use:?Tobacco Use/Smoking?Are you a:?nonsmoker ?Additional Findings: Tobacco Non-User?Aggressive non-smoker ?Tobacco use other than smoking?Are you an other tobacco user??No ???Miscellaneous:?Caffeine: yes, frequency:, 1-2 cups per day. ?Children: yes. ?Exercise: yes, Gardening. ?Marital status: . 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 * Medications:?TakingFludrocor tisone Acetate 0.1 MG Tablet 1 tablet Orally Once a day predniSONE 5 MG/ML Concentrate 1 tablet Orally Once a day Betamethasone Dipropionate 0.05 % Cream 1 application Externally Once a day Probiotic - Tablet Delayed Release as directed Orally Probiotic PreserVision AREDS Metoprolol Succinate 100 MG Capsule ER 24 Hour Sprinkle 1 capsule Orally Once a day AFO-fixed . Ankle-Foot Orthotic 1 . Wear daily Taking Fludrocortisone Acetate 0.1 MG Tablet 1 tablet Orally Once a day Taking predniSONE 5 MG/ML Concentrate 1 tablet Orally Once a day Taking Betamethasone Dipropionate 0.05 % Cream 1 application Externally Once a day Taking Probiotic - Tablet Delayed Release as directed Orally Taking Probiotic Taking PreserVision AREDS Taking Metoprolol Succinate 100 MG Capsule ER 24 Hour Sprinkle 1 capsule Orally Once a day Taking AFO-fixed . Ankle-Foot Orthotic 1 . Wear daily Not-Taking/PRNXtandi Meloxicam 15 MG Tablet 1 tablet Orally Once a day Eye Vitamins - Capsule as directed Orally Metoprolol Succinate 100 MG Capsule ER 24 Hour Sprinkle 1 capsule Orally Once a day amLODIPine Benzoate amLODIPine Besy-Benazepril HCl 5-20 MG Capsule as directed Orally Medication List reviewed and reconciled with the patientNot-Taking/PRN Xtandi Not-Taking/PRN Meloxicam 15 MG Tablet 1 tablet Orally Once a day Not-Taking/PRN Eye Vitamins - Capsule as directed Orally Not-Taking/PRN Metoprolol Succinate 100 MG Capsule ER 24 Hour Sprinkle 1 capsule Orally Once a day Not-Taking/PRN amLODIPine Benzoate Not-Taking/PRN amLODIPine Besy-Benazepril HCl 5-20 MG Capsule as directed Orally Medication List reviewed and reconciled with the patient * Allergies:?N.K.D.A.yes[Aller gies Verified] Objective: * Vitals:?Ht: 5 ft 9 in, Wt: 1 52, BMI: 22.44, Shoe size: 10.5, BP: 119/72 mm Hg, Ht-cm: 175.26 cm, Wt-k.95 kg. * Examination: ???General Examination: ?GENERAL APPEARANCE:?Reveals [...] Right , Decreased with DF.?GAIT ABNORMALITY:?unstable/unsteady relating decrease in falls with AFO brace and more use of wheel chair.?BUNION:?Dorso-Medially prominent 1st MPJ, b/l.?DIGITAL DEFORMITIES:?Digital contracture, PIPJ, 2-5 B/L, non-reducible with WB or to push-up test, multiple overlapping.?Neurological: ?SENSORY:?Neurological exam demonstrates reduced sharp/dull pin prick [...] nor excrescences. The interspaces are clear, B/L , Skin shows sign(s) of, dryness, scaling, in a stocking fashion, no fissure(s) present, B/L, Skin exam reveals Keratotic lesion(s) located at, T4.?ULCER:? LOCATION, Dorsal, T1, SIZE, 6mm X 4 mm X 2mm, BASE, granular, RIM, hyperkeratotic, UNDERMINING, absent, TRACKING, Full thickness breakdown of skin, DRAINAGE, serosanguineous, mild, NECROTIC TISSUE, loosely-adherent, yellow slough, MALODOR, absent, CALOR, absent, ERYTHEMA, absent, PAIN ON PALPATION,absent?.?Vascular: ?DP PULSES (B):?10/21, B/L.?PT PULSES (B):?10/21, B/L.?Nails: ?NAILS are:?Elongated, overgrown, dystrophic, lytic, greater than 3mm thick, discolored and friable with crumbly malodorous subungual debris, with dull to no pain on palpation due to neuropathy, T5, T6, T7, T8, T9, TA,? T2, T3,?.? 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 Plan: * Treatment: 2.?Tinea unguium?Procedure: 91878-APVUNLN NAIL, 6 OR MORE 3.?Skin ulcer of toe of left foot, limited to breakdown of skin?Procedure: 08206- Debride <25 sq cm Notes: Patient Educated with: WOUND CARE INSTRUCTIONS.pdf (WOUND CARE INSTRUCTIONS.pdf)?? 4.?Polyneuropathy due to oth er toxic agents?Procedure: 00422-YJUZ SKIN LESION * Procedures:?Debride Nail 6-10:?Nail debridement?Due to the clinical pathology outlined in the exam findings, performance of this nail treatment is medically necessary as its management by an unskilled/untrained nonprofessional would put this patients foot and overall health at risk. Therefore, debridement to affected nail(s), as described in exam ( T5, T6, T7, T8, T9, TA, T2, T3, ), was performed exclusively by the physician of record to reduce/remove overall nail length, girth, thickness, subungual debris, and necrotic tissue, by manual and/or electrical means through the use of a nail nipper and/or dremel-type centerless grinder operator, to a more viable healthy nail plate or bed tissue 6-10 nails in total. Silver nitrate was used for any petechial bleeding as necessary. Definitive antifungal treatment options, both pharmaceutical and surgical, have been reviewed and discussed with the patient. The patient solely prefers the use of intermittent/as needed professional debridement services for their nail condition and understands the need for additional periodic treatments to maintain effectiveness in symptomatic relief - 72420.?Debride skin< 25 sq cm:?Open wound?Physician of record [...] was achieved through direct pressure. Post debridement measurements:4 mm x 4mm x 2 mm,. 8mm X 5mm X 2mm Character of the wound post debridement is stable (77160).?Keratoma Treatment:?Parring or Cutting of Benign Hyperkeratotic Lesion(s)?(-55) 1 Lesion - Due to the at risk nature of the patients medical condition as documented in the exam findings, performance of this keratoderma treatment is medically necessary as its management by an unskilled/untrained nonprofessional would put this patients foot and overall health at risk. Therefore, the benign hyperkeratotic lesion, 1 in total, as stated and described in the exam ( T4? ), was pared, and/or cut utilizing a sterile 15 blade, tissue nippers, and/or power dremel instrumentation by the physician of record - 35566.? * Procedure Codes:?80926 DEBRI DE NAIL, 6 OR MORE, Modifiers: XS 31154 ACTIVE WOUND CARE/20 CM OR <, Modifiers: T1 89703 TRIM SKIN LESION, Modifiers: XS * Preventive Medicine:? ??Counseling:?Discussion:?-14: Office [...] have encouraged the patient to call the office.?F/u Visit:?Given recent successful results to treatment, The patient wishes to continue with the present treatment plan for their condition.?Xerosis:?The patient was counseled on the diagnosis, potential etiologies, and treatment options for their skin condition. We discussed the risks and benefits of each option from performing no treatment, to utilizing OTC topical skin creams/ointments, to utilizing prescription topical creams/ointments, to utilizing customized compounded topical medications and use of nocturnal occlusion with any/all previously detailed therapies. We discussed the advantages and disadvantages of each possible treatment and importance for adherence to all the recommended therapies for optimum success and avoid potential complications such as open sore/infection/possible hospitalization. We discussed the potential effectiveness of each topical preparation as well as each ones possible side effects and/or patient medication interactions. Patient questions re: use, dosage, successful outcomes, and application consistency were reviewed and the patient verbalized that all answers were clearly understood. The patient has decided to apply Rx skin creams to their feet save the interspaces while paying special attention to the heels. Such was sent to their pharmacy at the time of visit.? ??Screening/Special Tests:?Fall Risk?Assessment:?Performed ?Plan of Care:?Documented ?Screening:?Two or more falls without injury in the past year ?FALLS: Screening for Future Fall Risk?Have you had two or more falls in the past year??Yes ?Have you had any falls with injury in the past year??No * Follow Up:?3 Months * Images: * Sign off status: Completed true * Provider:?Emily Davidson DPM Date:?2024 Generated for Zachary carreon/Junaid/Ronenitting on:?12/18/2024 12:11 PM EST History and Physical Notes * HPI (History of Present Illness) Category Sub-Category Detail Notes Category Not es Painful Nails Pt States Last PCP Visit: Date:: 10/17/2024 Skin problems Nature: dryness , scaling Location: B/L Duration: several days Course: worse Foot Pain Nature: , numbness right , unsteady gait Treatments: AFO brace Examination Category Sub-Category Detail Notes Category Not [...] nor excrescences. The interspaces are clear, B/L , Skin shows sign(s) of, dryness, scaling, in a stocking fashion, no fissure(s) present, B/L, Skin exam reveals Keratotic lesion(s) located at, T4 ULCER: LOCATION, Dorsal, T1 , SIZE, 6mm X 4 mm X 2mm, BASE, granular, RIM, hyperkeratotic, UNDERMINING, absent, TRACKING, Full thickness breakdown of skin, DRAINAGE, serosanguineous, mild, NECROTIC TISSUE, loosely- adherent, yellow slough, MALODOR, absent, CALOR, absent, ERYTHEMA, absent, PAIN ON PALPATION,absent Orthopedic GAIT ABNORMALITY: unstable/unste stacy relating decrease in falls with AFO brace and more use of wheel chair BUNION: Dorso-Medially promi nent 1st MPJ, b/l FOOTWEAR: DIGITAL DEFORMITIES: Digital contracture , PIPJ, 2-5 [...] no pain on palpation due to neuropathy, T5, T6, T7, T8, T9, TA, T2, T3,
--- OUTSIDE RECORDS SUMMARY | 2024-12-18 12:11 | XMS_ITS ---
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 Name Role Phone Roma Mari MD Primary Care Provider Unavaila ble Black, Emily Unavailable [phone] Allergies No Known Allergies REASON FOR VISIT Painful nail(s) aggrevated by shoes causing difficulty standing/walking, Foot pain, Painful Toe(s),Unsteady Gait Medications Medication SIG (Take, Route, Frequency, Duration) Notes Start Date End Date Status Metoprolol Succinate 100 MG 1 capsule Orally Once a day Active Xtandi Active Meloxicam 15 MG 1 tablet Orally Once a day Active Betamethasone Dipropionate 0.05 % 1 application Externally Once a day Active amLODIPine Benzoate Active Metoprolol Succinate 100 MG 1 capsule Orally Once a day Active Probiotic Active PreserVision AREDS A ctive Eye Vitamins - as directed Orally Active amLODIPine Besy-Benazepril HCl 5-20 MG as directed Orally Not-Takin g Probiotic - as directed Orally Active Social History Tobacco Use: Social History [...] Problem Status W/U Status Risk Notes Problem 23562191 Unsteady gait (R26.81) Active confirmed Vital Signs Height 5 ft 9 in in 04/27/2024 Weight 160 lbs 04/27/2024 BMI 23.63 kg/m2 04/27/2024 Blood pressure systolic 135 mm Hg 04/27/20 24 Blood pressure diastolic 70 mm Hg 024 Procedures Procedure Date Ordered Date Performed Result Body Sit e 29220-DWOUSNY NAIL, 6 OR MORE 04/27/2024 N/A Encounters Encounter Location Date Provider Diagnosis [facility] [address] [place] [address] 04/27/2024 Emily Black Tinea unguium B35.1 ; [...] toe, left M19.072 and Unsteady gait R26.81 Assessments Encounter Date Diagnosis (ICD Code) Assessment Notes Treatment Notes Treatment Clinical Notes Section Notes 04/27/2024 Tinea unguium (ICD-10 - B35.1) 04/27/2024 Pain in right toe(s) (ICD-10 - M79.674) 04/27/2024 Pain in left toe(s) (ICD-10 - M79.675) 04/27/2024 Hallux valgus (acquired), 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 - 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) 04/27/2024 Hallux valgus (acquired), right foot (ICD-10 - M20.11) 04/27/2024 Other hammer toe(s) (acquired), right foot (ICD-10 - M20.41) 04/27/2024 Arthritis of joint of lesser toe, 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) 04/27/2024 Other hammer toe(s) (acquired), 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 - M20.42) 04/27/2024 Arthritis of joint of lesser toe, left (ICD-10 - M19.072) 04/27/2024 Unsteady gait (ICD-10 - R26.81) 04/27/2024 Other Plan Of Treatment Pending Test Test Name Order Date 79498-ZCDRIOR NAIL, 6 OR MORE 04/27/2024 Next Appt Details Follow Up: prn, Reason: Provider Name:Emily Davidson , 02/19/2025 10:15:00 AM, [address] [place] [address], [id number], Procedure Notes * Category Sub-Category Detail Notes Debride Nail 6-10 Nail debridement Nail debridem ent performed extensively to reduce/remove overall nail length, girth, thickness, subungual debris, and necrotic tissue, by manual and electrical means through the use of a nail nipper and/or dremel, to more viable healthy nail plate or bed tissue 1-5. Silver nitrate used for any petechial bleeding as necessary. Patient chooses, no pharmaceutical tx (57068) Progress Notes * Guillaume ARAGON DDOB:[birth year] (83 yo M)Acc No.[id number]:04/27/2024 Progress Note Patient:?Guillaume Aragon D Provider:?Emily Davidson DPM :1940???Age:83 Y???Sex:Male Maurice e:04/27/2024 Address:[address] [place], [place] [id number] Pcp:Roma Mari MD Subjective: * Chief Complaints: * ???Painful nail(s) aggrevate d by shoes causing difficulty standing/walkingFoot painPainful Toe(s)Unsteady Gait * HPI: ???Painful Nails:?Pt States Last PCP Visit:?Date:?04/05/2024 ???Foot Pain:?Location:?Inside, Great toe joint, B/L.?Duration:?several months.?Course:?, improved , at 70 %.?Aggrevated:?any pressure.?Treatments:?rest/alter normal daily activity , change in shoes.?Toe pain:?Nature:?tenderness.?Location:?B/L feet.?Duration:?, several months.?Course:?, improved , at 70? percent.?Aggrevated by:?shoes, any pressure.?Treatments:?rest/alter normal daily activity, change in shoes to recomm. brand.?Functional Status:?Unsteady Gait?unsteady gait with balance issues -no recent falls.? * ROS:?General/Constitutional:?Nausea?denies.?Vomiting?denies.?Hunger Thirst?denies.?Loss appetite?denies.?Chills?denies.?Fatigue?denies.?Fever?denies.?Night Sweats?denies.?Unexplained weight loss?denies.?Unexplained weight gain?denies.?HEENTM:?Dentures?denies.?Dizziness?denies.?Glasses/contacts?admits.?Retinopathy?de nies.?Blurred/double vision?denies.?TMJ?denies.?Discharge/drainage?denies.?Implants?denies.?Sore throat?denies.?Dental implants?denies.?Hard of hearing ?admits.?Difficulty chewing/swallowing/speaking?denies.?Nose bleeds?denies.?Sore mouth?denies.?Respiratory:?On Oxygen?denies.?Pneumonia/pleurisy?denies.?Bronchitis?denies.?Emphysema?denies.?C oughing?denies.?Cough blood?denies.?Shortness of breath?denies.?Wheezing?denies.?Cardiovascular:?Pacemaker?denies.?MVP?denies.?WPW?denies.?CHF?denies.?Heart attack?denies.?Septal defect?denies.?Rapid beat?denies.?Chest pain ?denies.?Atrial Fib.?denies.?Murmur/Palpitations?denies.?Gastrointestinal:?Hemorrhoids?denies.?Stomach/Abdominal pain?denies.?Dark blood stool?denies.?Irritable bowel ?denies.?Constipation?denies.?Diarrhea?denies.?Hematology:?Swelling?denies.?Clots?denies.?Varicose Veins?denies.?Bruising?admits.?Bleeding problem?denies.?Genitourinary:?Blood urine?denies.?Frequent/Painfu/urination/bladder control?denies.?Kidney stones?denies.?Infection (UTI)?denies.?Nephropathy?denies.?sex trans dis (STD)?denies.?Prostate?admits.?Musculoskeletal:?Hammertoes?denies.?Bunions?denies.?Back Pain?denies.?Muscle Cramps/ Resting?denies.?Muscle cramps / walking?denies.?Generalized aches and pains?admits.?Weakness?denies.?Integ.:?Jurado?denies.?Scars?denies.?Corns/calluses?admits.?Ingrown nails?denies.?Painful nails?denies.?Open Sores?denies.?Rashes?denies.?Neurologic:?Difficulty sleeping?denies.?Brain disorder?denies.?Numbness?denies.?Balance trouble?denies.?Confusion?denies.?Fainting/blackouts?denies.?Tingling?denies.?Tr emors?denies.? * Medical History:? * Surgical History:?TURP (quiñonez surethral resection of the prostate) 2019shoulder surgery Right Rotator Cuff Right Hand/Claw Hand cataract surgery L Eye * Hospitalization/Major Diagno stic Procedure:?[facility]- RSV 08/09 * Family History:?Mother: dece ased, colon cancer, [...] yes, Gardening. ?Marital status: . ?Occupation: Retired [employer]. * Medications:?TakingXtandi Me loxicam 15 MG Tablet 1 tablet Orally Once a dayBetamethasone Dipropionate 0.05 % Cream 1 application Externally Once a dayProbiotic - Tablet Delayed Release as directed Orally Eye Vitamins - Capsule as directed Orally Metoprolol Succinate 100 MG Capsule ER 24 Hour Sprinkle 1 capsule Orally Once a dayProbiotic PreserVision AREDS amLODIPine Benzoate Metoprolol Succinate 100 MG Capsule ER 24 Hour Sprinkle 1 capsule Orally Once a dayTaking Xtandi Taking Meloxicam 15 MG Tablet 1 tablet Orally Once a dayTaking Betamethasone Dipropionate 0.05 % Cream 1 application Externally Once a dayTaking Probiotic - Tablet Delayed Release as directed Orally Taking Eye Vitamins - Capsule as directed Orally Taking Metoprolol Succinate 100 MG Capsule ER 24 Hour Sprinkle 1 capsule Orally Once a dayTaking Probiotic Taking PreserVision AREDS Taking amLODIPine Benzoate Taking Metoprolol Succinate 100 MG Capsule ER 24 Hour Sprinkle 1 capsule Orally Once a dayNot-Taking/PRNamLODIPine Besy-Benazepril HCl 5-20 MG Capsule as directed Orally Medication List reviewed and reconciled with the patientNot-Taking/PRN amLODIPine Besy-Benazepril HCl 5-20 MG Capsule as directed Orally Medication List reviewed and reconciled with the patient * Allergies:?N.K.D.A.yes[Aller gies Verified] Objective: * Vitals:?Ht: 5 ft 9 in, Wt: 1 60, BMI: 23.63, Shoe size: 11, BP: 135/70 mm Hg, Ht- cm: 175.26 cm, Wt-k.57 kg. * Examination: ???General Examination: ?GENERAL APPEARANCE:?Reveals a pleasant, alert, well nourished, well- developed, well hydrated individual, who demonstrates proper attention to hygiene/body habitus, and is in no acute distress, Pt serves as own historian for office visit today.?ORIENTED:?person, place, and time.?Orthopedic: ?MUSCLE STRENGTH:?5/5 all groups in a symmetrical fashion, B/L.?GAIT ABNORMALITY:?unstable/unsteady relating occasional difficulty with balance , B/L.?BUNION:?Dorso-Medially prominent 1st MPJ, (+) Pain on palpation 70 percent less??inflammation present medially, Lateral tracking 1st MPJ incompletely reducible, B/L , Limited 1st MPJ Dorsal ROM , Limited 1st MPJ Plantar ROM , Crepitus with ROM present.?DIGITAL DEFORMITIES:?Digital contracture, PIPJ, 2-5 B/L, non-reducible with WB or to push-up test, multiple overlapping.?FOOTWEAR:?good condition.?Neurological: ?SENSORY:?Neurological exam reveals intact sensorium, pain sensation normal, vibration sensation intact, pinprick sensation is normal in the lower extremities, Pt denies, anesthesia, burning, paresthesia, tingling, B/L.?Dermatologic: ?SKIN FINDINGS:?Skin exam reveals normal color, texture, elasticity, and turgor. There are no masses, nor excrescences. The interspaces are clear, B/L.?Vascular: ?DP PULSES:?10/21, B/L.?PT PULSES:?10/21, B/L.?Nails: ?NAILS are:?Elongated, overgrown, dystrophic, lytic, greater than 3mm thick, discolored and friable with crumbly malodorous subungual debris, with pain on palpation , 12,4,5 Left foot , 1-5 Right foot.? Assessment: * Assessment: 1.?Tinea unguium - B35.1?2.? 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 Plan: * Treatment: * Procedures:?Debride Nail 6-10:?Nail debridement?Nail debridement performed extensively to reduce/remove overall nail length, girth, thickness, subungual debris, and necrotic tissue, by manual and electrical means through the use of a nail nipper and/or dremel, to more viable healthy nail plate or bed tissue 1-5. Silver nitrate used for any petechial bleeding as necessary. Patient chooses, no pharmaceutical tx (50009).? * Procedure Codes:?03294 DEBRI DE NAIL, 6 OR MORE, Modifiers: XS * Preventive Medicine:? ??Counseling:?Discussion:?-13: Office or other outpatient visit for the evaluation and management of an established patient, which required a medically appropriate history and/or examination and LOW level of DECISION MAKING for: 1 STABLE ACUTE UNCOMPLICATED PROBLEM, 2 OR MORE MINOR PROBLEMS, OR 1 STABLE CHRONIC PROBLEM, THAT POSE(S) A LOW RISK FOR MORBIDITY/MORTALITY. The visit on the day of the [...] have encouraged the patient to call the office, Given recent successful results to treatment, The patient wishes to continue with the present treatment plan for their hammertoes and Bunions..?Physical Therapy:?Discussed the potential short and mcfp benefits of physical therapy including pain relief, [...] of PT therapy treatment for their MSK condition, Recommend gait training and stability, Pt defers on therapy at this time.? * Follow Up:?prn * Images: * Sign off status: Completed true * Provider:Alonzo Davidson DPM Date:?2023 Generated for Zachary carreon/Junaid/Ronenitting on:?12/18/2024 12:10 PM EST History and Physical Notes * HPI (History of Present Illness) Category Sub-Category Detail Notes Category Not es Toe pain Nature: tenderness Location: B/L feet Duration: , several months Course: , improved , at 70 p ercent Aggravated by: shoes, any pressure Treatments: rest/alter normal da zuleima activity, change in shoes to recomm. brand Painful Nails Pt States Last PCP Visit: Date:: 04/05/2024 Foot Pain Location: Inside, Great toe joint, B/L Duration: several months Course: , improved , at 70 % Aggravated: any pressure Treatments: rest/alter normal da zuleima activity , change in shoes Functional Status Unsteady Gait unsteady gait with balance issues -no recent falls Examination Category Sub-Category Detail Notes Category Not es Neurological SENSORY: Neurological exa m reveals intact sensorium, pain sensation normal, vibration sensation intact, pinprick sensation is normal in the lower extremities, Pt denies, anesthesia, burning, paresthesia, tingling, B/L TINEL'S COMPRESSION: Dermatologic SKIN FINDINGS: Skin exam reveal s normal color, texture, elasticity, and turgor. There are no masses, nor excrescences. The interspaces are clear, B/L ULCER: Orthopedic GAIT ABNORMALITY: unstable/unste stacy relating occasional difficulty with balance , B/L BUNION: Dorso-Medially promi nent 1st MPJ, (+) Pain on palpation 70 percent less inflammation present medially, Lateral tracking 1st MPJ incompletely reducible, B/L , Limited 1st MPJ Dorsal ROM , Limited 1st MPJ Plantar ROM , Crepitus with ROM present FOOTWEAR: good condition DIGITAL DEFORMITIES: Digital contracture , PIPJ, 2-5 B/L, non-reducible with WB or to push-up test, multiple overlapping MUSCLE STRENGTH: 5/5 all groups in a symmetrical fashion, B/L General Examination GENERAL APPEARANCE: Reveals a pleasant, alert, well nourished, well-developed, well hydrated individual, who demonstrates proper attention to hygiene/body habitus, and is in no acute distress, Pt serves as own historian for office visit today ORIENTED: person, place, and t lianet Vascular DP PULSES (B): 10/21, B/L PT PULSES (B): 10/21, B/L Nails NAILS are: Elongated, overg rown, dystrophic, lytic, greater than 3mm thick, discolored and friable with crumbly malodorous subungual debris, with pain on palpation , 12,4,5 Left foot , 1-5 Right foot
== END 2024-12-18 11:46 | disposition home or self-care (01) ==
PROVIDERS: PCP Internal Medicine; Visit Provider Internal Medicine
DX: I95.1 Orthostatic hypotension (principal); I48.91 Unspecified atrial fibrillation; C61 Malignant neoplasm of prostate

== ENCOUNTER → 2024-12-18 10:29 | Outpatient (BNVA) | payer MEDICARE, SELFPAY | PROVIDERS: PCP Internal Medicine; Visit Provider Internal Medicine | DX: I95.1 Orthostatic hypotension (principal); I48.91 Unspecified atrial fibrillation; C61 Malignant neoplasm of prostate | CPT/HCPCS: 96127; 99212 ==